=== PATIENT | male | born 1975 | race Caucasian/White ===

== ENCOUNTER 2020-04-19 06:43 | Inpatient (IN) | payer OTHER ==
[2020-04-19] MEDS ORDERED: HYDROmorphone 1 MG/ML Syringe IVPUSH ONE ×2 (07:04→09:22)
[2020-04-19] MEDS ORDERED: Metoclopramide 10 MG/2 ML SDV IVPUSH ONE (07:04)
--- NOTE | 2020-04-19 07:09 | EDM.PDOC ---
ED HPI GENERAL MEDICAL PROBLEM - General Chief Complaint: Abdominal Pain Stated Complaint: [facility] Time Seen by Provider: 04/19/20 06:56 Source of Information: Reports: Patient History Limitations: Reports: No Limitations - History of Present Illness INITIAL COMMENTS - FREE TEXT/NARRATIVE: 44-year-old male presents the ED due to sudden onset of diffuse epigastric left upper quadrant left lower quadrant abdominal pain early about 0400 hrs. this morning. He states he was finally went to bed last night. He ate and drank normally yesterday. He denies any alcohol intake over the weekend. Denies any vomiting but he is mildly nauseated. Believes his bowel function has been normal. No diarrhea. No previous abdominal surgery. He is an insulin- dependent diabetic for about 15 years. Blood sugar currently is 323 at the bedside. Take some Lantus last night before bed as per his usual. Pain radiates slightly up and towards his left lateral abdomen and flank. No history of renal colic. Has noted no change in the color of his urine. No fever or chills. Pain is described as constant but seems to be moving around a little bit. He denies any colicky component to the pain Onset: Today, Sudden Onset Date: 04/19/20 Onset Time: 04:00 Duration: Hour(s):, Constant, Getting Worse Location: Reports: Abdomen, Radiates to (Epigastrium and left upper quadrant left lower quadrant of the abdomen. Slightly towards the) Quality: Reports: Ache ( left flank.) Severity: Moderate Improves with: Reports: None (810) Worsens with: Reports: Movement Context: Reports: Other (Sudden onset). Denies: Activity, Exercise, Lifting, Sick Contact, Trauma Associated Symptoms: Reports: Loss of Appetite, Malaise, Nausea/Vomiting ( Nausea without vomiting). 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 Has been diabetic for about 15 years) Social & Family History - Living Situation & Occupation Living situation: Reports: Single Occupation: Employed ED ROS GENERAL - Review of Systems Review Of Systems: See Below Constitutional: Reports: Decreased Appetite. Denies: Fever, Chills, Malaise, Weakness, Fatigue, Weight Loss HEENT: Reports: No Symptoms Respiratory: Reports: No Symptoms Cardiovascular: Reports: No Symptoms Endocrine: Reports: No Symptoms GI/Abdominal: Reports: Abdominal Pain (Epigastrium left upper quadrant left lower quadrant abdominal pain.), Decreased Appetite, Nausea. Denies: Vomiting : Reports: No Symptoms Musculoskeletal: Reports: No Symptoms Skin: Reports: No Symptoms Neurological: Reports: No Symptoms Psychiatric: Reports: No Symptoms Hematologic/Lymphatic: Reports: No Symptoms Immunologic: Reports: No Symptoms ED EXAM, GI/ABD - Physical Exam Exam: See Below Exam Limited By: No Limitations General Appearance: Alert, WD/WN, Moderate Distress, Other (Used to be in a good deal of discomfort. Temperature is 35.8 with a heart rate of 66 and sinus. Respiratory is 22 with O2 sats of 97% on room air BP 11/30/1977.) Eyes: Bilateral: Normal Appearance (No scleral icterus or blepharal pallor.) Throat/Mouth: Normal Oropharynx (Is minimally dry.), Other Head: Atraumatic, Other Neck: Normal Inspection, Supple, Non-Tender, Full Range of Motion. No: Carotid Bruit, Lymphadenopathy (L), Lymphadenopathy (R) Respiratory/Chest: No Respiratory Distress, Lungs Clear, Normal Breath Sounds, No Accessory Muscle Use Cardiovascular: Normal Peripheral Pulses, Regular Rate, Rhythm, No Edema, No Gallop, No Murmur, No Rub GI/Abdominal Exam: Soft, No Organomegaly, Guarding, Rebound, Tender (Tender to touch along the entire left hemiabdomen and epigastrium.), Abnormal Bowel Sounds (Bowel sounds are diminished substantially.). No: Rigid (Male) Exam: No Hernia Back Exam: CVA Tenderness (L). No: CVA Tenderness (R) (Mild) Extremities: Normal Inspection, Normal Range of Motion, Non-Tender, No Pedal Edema Neurological: Alert, Oriented, CN II-XII Intact, Normal Cognition Psychiatric: Other Skin Exam: Warm, Dry (Good deal of discomfort.), Intact, Normal Color, No Rash, Other (Mild ecchymoses abdominal wall in several sites at insulin injection sites.) EKG INTERPRETATION EKG Date: 04/19/20 Time: 07:20 Rhythm: NSR Rate (Beats/Min): 74 [place]: Normal P-Wave: Enlarged (Consider mild left atrial hypertrophy.) QRS: Normal ST-T: Normal QT: Normal EKG Interpretation Comments: Essentially normal ECG Course - Vital Signs Last Recorded V/S: Last Vital Signs Temp 35.8 C L 04/19/20 06:48 Pulse 66 04/19/20 06:48 Resp 22 H 04/19/20 06:48 BP 119/78 04/19/20 06:48 Pulse Ox 97 04/19/20 06:48 - Orders/Labs/Meds Orders: Active Orders 24 hr Category Date Time Status Admission Status [Patient Status] [ADT] Routine ADT 04/19/20 10:43 Ordered EKG Documentation Completion [RC] STAT Care 04/19/20 07:05 Active CHOLESTEROL HDL [CHEM] Stat Lab 04/19/20 08:21 Received CHOLESTEROL LDL DIRECT [CHEM] Stat Lab 04/19/20 08:21 Received CHOLESTEROL TOTAL [CHEM] Stat Lab 04/19/20 08:21 Received DRUG SCREEN, URINE [URCHEM] Stat Lab 04/19/20 07:35 Received ETHANOL BLOOD MEDICAL [CHEM] Stat Lab 04/19/20 08:21 Received TRIGLYCERIDES [CHEM] Stat Lab 04/19/20 08:21 Received Sodium Chloride 0.9% [Normal Saline] 1,000 ml Med 04/19/20 07:15 Active IV ASDIRECTED Sodium Chloride 0.9% [Saline Flush] Med 04/19/20 08:53 Active 10 ml FLUSH ONETIME PRN Medication Orders Sodium Chloride (Normal Saline) 1,000 mls @ 999 mls/hr IV ASDIRECTED VERONIQUE Last Admin: 04/19/20 07:35 Dose: 999 mls/hr Sodium Chloride (Saline Flush) 10 ml FLUSH ONETIME PRN PRN Reason: IV FLUSH Last Admin: 04/19/20 09:43 Dose: 10 ml Labs: Laboratory Tests 04/19/20 04/19/20 04/19/20 Range/Units 07:00 07:35 08:21 WBC 17.78 H (4.23-9.07) K/mm3 RBC 5.53 (4.63-6.08) M/mm3 Hgb 16.7 (13.7-17.5) gm/dl Hct 48.7 (40.1-51.0) % MCV 88.1 (79.0-92.2) fl MCH 30.2 (25.7-32.2) pg MCHC 34.3 (32.2-35.5) g/dl RDW Std Deviation 41.7 (35.1-43.9) fL Plt Count 277 (163-337) K/mm3 MPV 11.4 (9.4-12.3) fl Neut % (Auto) 82.5 H (34.0-67.9) % Lymph % (Auto) 10.2 L (21.8-53.1) % [place] % (Auto) 6.2 (5.3-12.2) % Eos % (Auto) 0.4 L (0.8-7.0) Baso % (Auto) 0.2 (0.1-1.2) % Neut # (Auto) 14.66 H (1.78-5.38) K/mm3 Lymph # (Auto) 1.81 (1.32-3.57) K/mm3 [place] # (Auto) 1.11 H (0.30-0.82) K/mm3 Eos # (Auto) 0.07 (0.04-0.54) K/mm3 Baso # (Auto) 0.04 (0.01-0.08) K/mm3 Manual Slide Review Normal smear PT (9.7-12.0) SECONDS INR APTT (22-31) SECONDS Sodium (136-145) mEq/L Potassium (3.5-5.1) mEq/L Chloride (98-107) mEq/L Carbon Dioxide (21-32) mEq/L Anion Gap (5-15) BUN (7-18) mg/dL Creatinine (0.7-1.3) mg/dL Est Cr Clr Drug Dosing mL/min Estimated GFR (MDRD) (>60) mL/min BUN/Creatinine Ratio (14-18) Glucose (74-106) mg/dL POC Glucose 323 H (70-105) mg/dL Hemoglobin A1c (4.50-6.20) % Lactic Acid (0.4-2.0) mmol/L Calcium (8.5-10.1) mg/dL Magnesium (1.8-2.4) mg/dl Total Bilirubin (0.2-1.0) mg/dL AST (15-37) U/L ALT (16-63) U/L Alkaline Phosphatase (46-116) U/L Troponin I (0.00-0.056) ng/mL C-Reactive Protein (<1.0) mg/dL Total Protein (6.4-8.2) g/dl Albumin (3.4-5.0) g/dl Globulin gm/dL Albumin/Globulin Ratio (1-2) Lipase (73-393) U/L Urine Color Yellow (Yellow) Urine Appearance Clear (Clear) Urine pH 5.5 (5.0-8.0) Ur Specific [place] 1.025 (1.005-1.030) Urine Protein 2+ H (Negative) Urine Glucose (UA) 2+ H (Negative) Urine Ketones Negative (Negative) Urine Occult Blood Negative (Negative) Urine Nitrite Negative (Negative) Urine Bilirubin Negative (Negative) Urine Urobilinogen 0.2 (0.2-1.0) Ur Leukocyte Esterase Negative (Negative) Urine RBC Not seen (0-5) /hpf Urine WBC Not seen (0-5) /hpf Ur Squamous Epith Cells 0-5 (0-5) /hpf Urine Bacteria Not seen (FEW) /hpf Urine Mucus Not seen (FEW) /hpf 04/19/20 04/19/20 04/19/20 Range/Units 08:21 08:21 08:21 WBC (4.23-9.07) K/mm3 RBC (4.63-6.08) M/mm3 Hgb (13.7-17.5) gm/dl Hct (40.1-51.0) % MCV (79.0-92.2) fl MCH (25.7-32.2) pg MCHC (32.2-35.5) g/dl RDW Std Deviation (35.1-43.9) fL Plt Count (163-337) K/mm3 MPV (9.4-12.3) fl Neut % (Auto) (34.0-67.9) % Lymph % (Auto) (21.8-53.1) % [place] % (Auto) (5.3-12.2) % Eos % (Auto) (0.8-7.0) Baso % (Auto) (0.1-1.2) % Neut # (Auto) (1.78-5.38) K/mm3 Lymph # (Auto) (1.32-3.57) K/mm3 [place] # (Auto) (0.30-0.82) K/mm3 Eos # (Auto) (0.04-0.54) K/mm3 Baso # (Auto) (0.01-0.08) K/mm3 Manual Slide Review PT 10.1 (9.7-12.0) SECONDS INR 0.93 APTT 21 L (22-31) SECONDS Sodium 136 (136-145) mEq/L Potassium 4.4 (3.5-5.1) mEq/L Chloride 102 (98-107) mEq/L Carbon Dioxide 24 (21-32) mEq/L Anion Gap 14.4 (5-15) BUN 29 H (7-18) mg/dL Creatinine 1.3 (0.7-1.3) mg/dL Est Cr Clr Drug Dosing 85.19 mL/min Estimated GFR (MDRD) > 60 (>60) mL/min BUN/Creatinine Ratio 22.3 H (14-18) Glucose 315 H (74-106) mg/dL POC Glucose (70-105) mg/dL Hemoglobin A1c 8.30 H (4.50-6.20) % Lactic Acid (0.4-2.0) mmol/L Calcium 8.9 (8.5-10.1) mg/dL Magnesium 1.9 (1.8-2.4) mg/dl Total Bilirubin 0.2 (0.2-1.0) mg/dL AST 25 (15-37) U/L ALT 42 (16-63) U/L Alkaline Phosphatase 101 (46-116) U/L Troponin I < 0.017 (0.00-0.056) ng/mL C-Reactive Protein <0.2 (<1.0) mg/dL Total Protein 7.1 (6.4-8.2) g/dl Albumin 3.1 L (3.4-5.0) g/dl Globulin 4.0 gm/dL Albumin/Globulin Ratio 0.8 L (1-2) Lipase (73-393) U/L Urine Color (Yellow) Urine Appearance (Clear) Urine pH (5.0-8.0) Ur Specific [place] (1.005-1.030) Urine Protein (Negative) Urine Glucose (UA) (Negative) Urine Ketones (Negative) Urine Occult Blood (Negative) Urine Nitrite (Negative) Urine Bilirubin (Negative) Urine Urobilinogen (0.2-1.0) Ur Leukocyte Esterase (Negative) Urine RBC (0-5) /hpf Urine WBC (0-5) /hpf Ur Squamous Epith Cells (0-5) /hpf Urine Bacteria (FEW) /hpf Urine Mucus (FEW) /hpf 04/19/20 04/19/20 Range/Units 08:21 08:21 WBC (4.23-9.07) K/mm3 RBC (4.63-6.08) M/mm3 Hgb (13.7-17.5) gm/dl Hct (40.1-51.0) % MCV (79.0-92.2) fl MCH (25.7-32.2) pg MCHC (32.2-35.5) g/dl RDW Std Deviation (35.1-43.9) fL Plt Count (163-337) K/mm3 MPV (9.4-12.3) fl Neut % (Auto) (34.0-67.9) % Lymph % (Auto) (21.8-53.1) % [place] % (Auto) (5.3-12.2) % Eos % (Auto) (0.8-7.0) Baso % (Auto) (0.1-1.2) % Neut # (Auto) (1.78-5.38) K/mm3 Lymph # (Auto) (1.32-3.57) K/mm3 [place] # (Auto) (0.30-0.82) K/mm3 Eos # (Auto) (0.04-0.54) K/mm3 Baso # (Auto) (0.01-0.08) K/mm3 Manual Slide Review PT (9.7-12.0) SECONDS INR APTT (22-31) SECONDS Sodium (136-145) mEq/L Potassium (3.5-5.1) mEq/L Chloride (98-107) mEq/L Carbon Dioxide (21-32) mEq/L Anion Gap (5-15) BUN (7-18) mg/dL Creatinine (0.7-1.3) mg/dL Est Cr Clr Drug Dosing mL/min Estimated GFR (MDRD) (>60) mL/min BUN/Creatinine Ratio (14-18) Glucose (74-106) mg/dL POC Glucose (70-105) mg/dL Hemoglobin A1c (4.50-6.20) % Lactic Acid 1.9 (0.4-2.0) mmol/L Calcium (8.5-10.1) mg/dL Magnesium (1.8-2.4) mg/dl Total Bilirubin (0.2-1.0) mg/dL AST (15-37) U/L ALT (16-63) U/L Alkaline Phosphatase (46-116) U/L Troponin I (0.00-0.056) ng/mL C-Reactive Protein (<1.0) mg/dL Total Protein (6.4-8.2) g/dl Albumin (3.4-5.0) g/dl Globulin gm/dL Albumin/Globulin Ratio (1-2) Lipase 1873 H (73-393) U/L Urine Color (Yellow) Urine Appearance (Clear) Urine pH (5.0-8.0) Ur Specific [place] (1.005-1.030) Urine Protein (Negative) Urine Glucose (UA) (Negative) Urine Ketones (Negative) Urine Occult Blood (Negative) Urine Nitrite (Negative) Urine Bilirubin (Negative) Urine Urobilinogen (0.2-1.0) Ur Leukocyte Esterase (Negative) Urine RBC (0-5) /hpf Urine WBC (0-5) /hpf Ur Squamous Epith Cells (0-5) /hpf Urine Bacteria (FEW) /hpf Urine Mucus (FEW) /hpf Meds: Medications Generic Name Dose Route Start Last Admin Trade Name Freq PRN Reason Stop Dose Admin Sodium Chloride 1,000 mls @ 999 mls/hr 04/19/20 07:15 04/19/20 07:35 Normal Saline IV 999 mls/hr ASDIRECTED VERONIQUE Administration Sodium Chloride 10 ml 04/19/20 08:53 04/19/20 09:43 Saline Flush FLUSH 10 ml ONETIME PRN Administration IV FLUSH Discontinued Medications Generic Name Dose Route Start Last Admin Trade Name Freq PRN Reason Stop Dose Admin Diatrizoate Meglum/Diatrizoate Sod 120 ml 04/19/20 08:53 04/19/20 09:43 Gastrografin 37% PO 04/19/20 08:54 90 ml ONETIME ONE Administration Fentanyl 100 mcg 04/19/20 10:26 04/19/20 10:35 Sublimaze IVPUSH 04/19/20 10:27 100 mcg ONETIME ONE Administration Hydromorphone HCl 1 mg 04/19/20 07:04 04/19/20 07:36 Dilaudid IVPUSH 04/19/20 07:05 1 mg ONETIME ONE Administration Hydromorphone HCl 0.5 mg 04/19/20 08:08 04/19/20 08:20 Dilaudid IVPUSH 04/19/20 08:09 0.5 mg ONETIME ONE Administration Hydromorphone HCl 1 mg 04/19/20 09:22 04/19/20 09:34 Dilaudid IVPUSH 04/19/20 09:23 1 mg ONETIME ONE Administration Iopamidol 50 ml 04/19/20 08:53 04/19/20 09:43 Isovue-300 (61%) IVPUSH 04/19/20 08:54 50 ml ONETIME ONE Administration Iopamidol 100 ml 04/19/20 08:53 04/19/20 09:43 Isovue-300 (61%) IVPUSH 04/19/20 08:54 100 ml ONETIME ONE Administration Metoclopramide HCl 10 mg 04/19/20 07:04 04/19/20 07:35 Reglan IVPUSH 04/19/20 07:05 10 mg ONETIME ONE Administration - Radiology Interpretation Free Text/Narrative:: 44-year-old male presents to the ED with sudden onset of diffuse left laurie- abdominal pain left epigastric left upper quadrant abdominal pain rating slightly into the left flank since about 0400 hrs. this morning. Associated nausea without vomiting. No associated fever or chills. No diarrhea recently. Ate and drank normally yesterday. He takes insulin for his diabetes control. Blood sugar was 323 at the bedside. He is extremely tender to touch throughout the left hemiabdomen. He has absence of bowel sounds and guarding and rebound in the left lower quadrant. Plan IV normal saline at open. Dilaudid 1 mg IV with Reglan 10 mg IV. Routine labs including a lipase and lactic acid. KUB to be done as well as ECG. - Re-Assessments/Exams Free Text/Narrative Re-Assessment/Exam: 04/19/20 07:54 : KUB reveals increased stool throughout most of the right hemicolon the transverse colon and the descending colon. Rectal vault is empty. There is a dilated loop of small bowel left upper quadrant and several dilated loops in the right lower quadrant that with a mild ileus pattern. There is no bowel obstruction .There are no air-fluid levels. 04/19/20 08:08 patient states the pain is down to a 4 out of 10. Will repeat Dilaudid 0.5 mg IV for pain relief. No labs yet are back on him. 04/19/20 08:[address] of the abdomen with oral and IV contrast. He will start with oral contrast and will make sure his renal function is good before pursuing IV contrast. 04/19/20 09:11 White count is markedly elevated at 17.78. The auto differential shows 82.5% neutrophils. Hemoglobin is 16.7 with hematocrit of 48.7 i.e. hemoconcentration. Platelet count is 277,000. The smear is reported as normal without any bands cells. PT is 10.1 with an INR of 0.93 PTT is 21. Hemoglobin A1c is 8.30. Lactic acid 1.9. Urinalysis shows 2+ proteinuria 2+ glucosuria but no signs of infection. Chemistry is pending 04/19/20 09:21 is got down one bottle of contrast thus far. It is made his abdomen much more comfortable however. The labs suggest that there is an underlying infective process most likely diverticulitis. He has no history of this however. Will repeat Dilaudid 1 mg IV for pain relief. 04/19/20 10:11 CT of the abdomen has been performed with IV and oral contrast. Visualized portions of the lung bases are normal. Cardiac silhouette appears to be normal as well. Liver appears homogeneous with mild fatty infiltration. No intraductal dilatation identified. Gallbladder is elongated and does not appear to contain any calcified gallstones. There are some inflammatory change seen around the pancreas compatible with pancreatitis. Stomach is normal spleen is normal. Adrenal glands are both visualized and normal. Both kidneys are normal although the left is slightly smaller than the right. No obstruction of the ureters are evident. There is scattered amount of stool throughout the colon and a few diverticuli throughout the sigmoid and descending colon. No acute diverticulitis identified. The axis felt to be visualized and normal in size. There is a fat-containing right inguinal hernia. No retroperitoneal adenopathy or mesenteric abnormalities seen. 04/19/20 10:18 Chemistry has returned. Sodium 136 with a potassium of 4.4. Chloride is 102 with a bicarb of 24. Anion gap is 14.4. BUN is 29 with a creatinine of 1.3. GFR is greater than 60. Glucose is 315 was 323 at the bedside. Hemoglobin A1c is elevated at 8.30. Lactic acid is 1.9. Calcium is 8.9. Magnesium is 1.9. Liver function is normal. Troponin I is less than 0.017 with a C-reactive protein less than 0.2. Total protein is 7.1 with an albumin fraction of 3.1. Lipase is elevated at 1873. 04/19/20 10:25 patient is still experiencing a good deal of pain. On firm investigation he states he rarely drinks alcohol. He certainly has not had any for the last week or 10 days. He requires further investigations as to the cause of his pancreatitis. There is no evidence of gallstone related illness. Calcium is within normal limits. Serum triglycerides will have to be done. 04/19/20 10:44 I have spoken with Dr. Guerrero on-call hospitalist and he will see the patient on the med surgery floor. Departure - Departure Time of Disposition: 10:44 Disposition: Admitted As Inpatient 67 Condition: Fair Clinical Impression: Controlled type 2 diabetes mellitus with insulin therapy Acute pancreatitis Qualifiers: Pancreatitis type: unspecified pancreatitis type Acute pancreatitis complication: no infection or necrosis Qualified Code(s): K85.90 - Acute pancreatitis without necrosis or infection, unspecified - Discharge Information *PRESCRIPTION DRUG MONITORING PROGRAM REVIEWED*: Not Applicable *COPY OF PRESCRIPTION DRUG MONITORING REPORT IN PATIENT [place]: Not Applicable Referrals: PCP,Not In Area [Primary Care Provider] - Forms: ED Department Discharge Sepsis Event Note - Evaluation Sepsis Screening Result: No Definite Risk - Focused Exam Vital Signs: Vital Signs Temp Pulse Resp BP Pulse Ox 04/19/20 06:48 35.8 C L 66 22 H 119/78 97 Date Exam was Performed: 04/19/20 Time Exam was Performed: 10:44 - My Orders Last 24 Hours: My Active Orders 04/19/20 07:05 EKG Documentation Completion [RC] STAT 04/19/20 07:15 Sodium Chloride 0.9% [Normal Saline] 1,000 ml IV ASDIRECTED 04/19/20 07:35 DRUG SCREEN, URINE [URCHEM] Stat 04/19/20 08:21 CHOLESTEROL HDL [CHEM] Stat CHOLESTEROL LDL DIRECT [CHEM] Stat CHOLESTEROL TOTAL [CHEM] Stat ETHANOL BLOOD MEDICAL [CHEM] Stat TRIGLYCERIDES [CHEM] Stat 04/19/20 08:53 Sodium Chloride 0.9% [Saline Flush] 10 ml FLUSH ONETIME PRN 04/19/20 10:43 Admission Status [Patient Status] [ADT] Routine - Assessment/Plan Last 24 Hours: My Active Orders 04/19/20 07:05 EKG Documentation Completion [RC] STAT 04/19/20 07:15 Sodium Chloride 0.9% [Normal Saline] 1,000 ml IV ASDIRECTED 04/19/20 07:35 DRUG SCREEN, URINE [URCHEM] Stat 04/19/20 08:21 CHOLESTEROL HDL [CHEM] Stat CHOLESTEROL LDL DIRECT [CHEM] Stat CHOLESTEROL TOTAL [CHEM] Stat ETHANOL BLOOD MEDICAL [CHEM] Stat TRIGLYCERIDES [CHEM] Stat 04/19/20 08:53 Sodium Chloride 0.9% [Saline Flush] 10 ml FLUSH ONETIME PRN 04/19/20 10:43 Admission Status [Patient Status] [ADT] Routine
[2020-04-19] MEDS ORDERED: Sodium Chloride 0.9% 1,000 ML IV SCH (07:15)
[2020-04-19] MEDS ORDERED: HYDROmorphone 0.5 MG/0.5 ML Syringe IVPUSH ONE ×2 (08:08→12:10)
[2020-04-19] MEDS ORDERED: Iopamidol 612 MG/ML 100 ML Bottle IVPUSH ONE (08:53)
[2020-04-19] MEDS ORDERED: Sodium Chloride 0.9% 10 ML Syringe FLUSH PRN (08:53)
[2020-04-19] MEDS ORDERED: Diatrizoate Meglumine/Diatrizoate Sodium 37% 120 ML Bottle PO ONE (08:53)
[2020-04-19] MEDS ORDERED: Iopamidol 612 MG/ML 50 ML SDV IVPUSH ONE (08:53)
[2020-04-19 08:55] LABS: HEMOGLOBIN A1C 8.3 % (4.50-6.20)
--- NOTE | 2020-04-19 09:05 | CR ---
Abdomen: Supine view of the abdomen was obtained. Comparison: No prior abdominal x-ray. Bowel gas pattern is normal. No abnormal calcifications or soft tissue abnormality is seen. Bony structures are unremarkable. Impression: 1. Nothing acute is seen on supine abdominal x-ray.. Diagnostic code #1 This report was dictated in MDT
--- NOTE | 2020-04-19 10:09 | CT ---
CT abdomen and pelvis Technique: Multiple axial sections were obtained from above the dome of the diaphragm inferiorly through the pubic symphysis. Intravenous contrast was utilized. Small amount of oral contrast is noted. Findings: Visualized lung bases shows mild fibrosis. Liver shows fatty infiltration. No focal abnormality is seen within the liver. Spleen appears normal. Small soft tissue nodules are seen posterior to the spleen compatible with accessory splenic tissue. Inflammatory change is seen around the pancreas compatible with pancreatitis. Gallbladder contains no calcified gallstones. Adrenal glands show no nodule. Kidneys show symmetric contrast enhancement without hydronephrosis or mass. Aorta shows no aneurysm. No retroperitoneal adenopathy or mesenteric abnormalities are seen. No pelvic mass or adenopathy is seen. Fat-containing right inguinal hernia is noted. No free fluid is seen. Appendix is felt to be visualized and is normal in size. Delayed images were obtained which shows contrast within the distal ureters and bladder. Bone window settings were reviewed. No acute osseous finding is appreciated. Impression: 1. Inflammatory change around the pancreas which is felt compatible with pancreatitis. 2. Fatty infiltration within the liver. 3. Other findings believed to be nonacute as noted above. Diagnostic code #3 This report was dictated in MDT
[2020-04-19] MEDS ORDERED: fentaNYL 100 MCG/2 ML SDV IVPUSH ONE (10:26)
[2020-04-19] MEDS: Lactated Ringers 1,000 ML IV SCH ×3 (10:54→20:16)
[2020-04-19] MEDS ORDERED: Morphine 4 MG/ML Syringe IVPUSH ONE (11:36)
[2020-04-19] MEDS ORDERED: HYDROmorphone 0.5 MG/0.5 ML Syringe IVPUSH STA (12:37)
[2020-04-19] MEDS ORDERED: Ondansetron 4 MG/2 ML SDV IV PRN (12:49)
--- NOTE | 2020-04-19 13:07 | PCM.HP.2 ---
H&P History of Present Illness - General Date of Service: 04/19/20 Admit Problem/Dx: Admission Diagnosis/Problem Admission Diagnosis/Problem Acute pancreatitis - History of Present Illness Initial Comments - Free Text/Narative: 44-year-old male with history of type 2 diabetes diagnosed in 2014 presents to the emergency department with severe abdominal pain that started this morning. Patient complains of nausea but no vomiting. Blood sugars this morning were 270 and they are normally 150-200. He did not have any alcohol intake over the weekend. The pain is constant and mostly in the epigastrium. He denies any change in bowel habits. Denies any diarrhea, constipation. He is on insulin for his diabetes. In the emergency department his blood sugar was 323 at bedside. With stable vital signs except a slightly elevated respiratory rate of 22. White count 17.78, hemoglobin 16.7, platelets 277. INR 0.93, sodium 136 , potassium 4.4, chloride 102, bicarb 24, BUN 29, creatinine 1.3. Hemoglobin A1c is 8.3. Troponin was less than 0.017. Normal liver enzymes. Albumin 3.1. Lactic acid 1.9. Lipase 1873. CT of the abdomen showed inflammatory change around the pancreas which is felt compatible with pancreatitis. Fatty infiltration within the liver. Patient was started on fluid bolus and given Dilaudid, fentanyl, and morphine for pain management. He was then transferred to the floor with diagnosis of acute pancreatitis with unknown cause. Abdominal Pain Score (Numeric/FACES): 10 - Related Data Allergies/Adverse Reactions: Allergies Allergy/AdvReac Type Severity Reaction Status Date / Time amoxicillin Allergy Mild Hives Verified 04/19/20 15:23 Home Medications: Home Meds Insulin Aspart [NovoLOG] 12 units SUBCUT TIDMEALS 04/19/20 [History] Insulin Degludec [Tresiba] 20 units SUBCUT QPM 04/19/20 [History] Sildenafil Citrate 25 - 50 mg PO DAILY PRN 04/19/20 [History] Past Medical History Endocrine/Metabolic History: Reports: Diabetes, Type II Other Dermatologic History: "blister with MRSA in groin" - Infectious Disease History Infectious Disease History: Reports: MRSA Social & Family History - Family History Family Medical History: Noncontributory - Tobacco Use Smoking Status *Q: Light Tobacco Smoker Years of Tobacco use: 20 Packs/Tins Daily: 0.5 Used Tobacco, but Quit: No Tobacco Use Comment: vapes occasionally Second Hand Smoke Exposure: No - Caffeine Use Caffeine Use: Reports: Coffee Other Caffeine Use: 3 cups/day - Recreational Drug Use Recreational Drug Use: No - Living Situation & Occupation Living situation: Reports: Single Occupation: Employed H&P Review of Systems - Review of Systems: Review Of Systems: Comprehensive ROS is negative, except as noted in HPI. Exam - Exam Exam: See Below - Vital Signs Vital Signs: Last Vital Signs Temp 97.5 F 04/19/20 12:05 Pulse 91 04/19/20 12:05 Resp 22 H 04/19/20 12:05 BP 149/97 H 04/19/20 12:05 Pulse Ox 94 L 04/19/20 12:05 Weight: 291 lb 14.4 oz - Exam General: Alert, Oriented, Moderate Distress HEENT: Conjunctiva Clear, Hearing Intact, Mucosa Moist & [place] Neck: Supple, Trachea Midline, 2 Lungs: Clear to Auscultation, Normal Respiratory Effort Cardiovascular: Regular Rate, Regular Rhythm GI/Abdominal Exam: Soft, No Organomegaly, No Distention, No Abnormal Bruit, No Mass, Tender (Epigastric tenderness). No: Abnormal Bowel Sounds (Decreased) Back Exam: Normal Inspection Extremities: Normal Inspection, Normal Range of Motion, Non-Tender, No Pedal Edema, Normal Capillary Refill Skin: Warm, Dry, Intact Neuro Extensive - Motor, Sensory, Reflexes: CN II-XII Intact Psychiatric: Alert, Normal Affect, Normal Mood - Patient Data Lab Results Last 24 hrs: Laboratory Results - last 24 hr 04/19/20 04/19/20 04/19/20 Range/Units 07:00 07:35 07:35 WBC (4.23-9.07) K/mm3 RBC (4.63-6.08) M/mm3 Hgb (13.7-17.5) gm/dl Hct (40.1-51.0) % MCV (79.0-92.2) fl MCH (25.7-32.2) pg MCHC (32.2-35.5) g/dl RDW Std Deviation (35.1-43.9) fL Plt Count (163-337) K/mm3 MPV (9.4-12.3) fl Neut % (Auto) (34.0-67.9) % Lymph % (Auto) (21.8-53.1) % [place] % (Auto) (5.3-12.2) % Eos % (Auto) (0.8-7.0) Baso % (Auto) (0.1-1.2) % Neut # (Auto) (1.78-5.38) K/mm3 Lymph # (Auto) (1.32-3.57) K/mm3 [place] # (Auto) (0.30-0.82) K/mm3 Eos # (Auto) (0.04-0.54) K/mm3 Baso # (Auto) (0.01-0.08) K/mm3 Manual Slide Review PT (9.7-12.0) SECONDS INR APTT (22-31) SECONDS Sodium (136-145) mEq/L Potassium (3.5-5.1) mEq/L Chloride (98-107) mEq/L Carbon Dioxide (21-32) mEq/L Anion Gap (5-15) BUN (7-18) mg/dL Creatinine (0.7-1.3) mg/dL Est Cr Clr Drug Dosing mL/min Estimated GFR (MDRD) (>60) mL/min BUN/Creatinine Ratio (14-18) Glucose (74-106) mg/dL POC Glucose 323 H (70-105) mg/dL Hemoglobin A1c (4.50-6.20) % Lactic Acid (0.4-2.0) mmol/L Calcium (8.5-10.1) mg/dL Magnesium (1.8-2.4) mg/dl Total Bilirubin (0.2-1.0) mg/dL AST (15-37) U/L ALT (16-63) U/L Alkaline Phosphatase (46-116) U/L Troponin I (0.00-0.056) ng/mL C-Reactive Protein (<1.0) mg/dL Total Protein (6.4-8.2) g/dl Albumin (3.4-5.0) g/dl Globulin gm/dL Albumin/Globulin Ratio (1-2) Triglycerides (<150) mg/dL Cholesterol (<200) mg/dL LDL Cholesterol Direct (<100) mg/dL HDL Cholesterol (40-59) mg/dL Lipase (73-393) U/L Urine Color Yellow (Yellow) Urine Appearance Clear (Clear) Urine pH 5.5 (5.0-8.0) Ur Specific [place] 1.025 (1.005-1.030) Urine Protein 2+ H (Negative) Urine Glucose (UA) 2+ H (Negative) Urine Ketones Negative (Negative) Urine Occult Blood Negative (Negative) Urine Nitrite Negative (Negative) Urine Bilirubin Negative (Negative) Urine Urobilinogen 0.2 (0.2-1.0) Ur Leukocyte Esterase Negative (Negative) Urine RBC Not seen (0-5) /hpf Urine WBC Not seen (0-5) /hpf Ur Squamous Epith Cells 0-5 (0-5) /hpf Urine Bacteria Not seen (FEW) /hpf Urine Mucus Not seen (FEW) /hpf Urine Opiates Screen Negative (ULDOPM=818) Ur Buprenorphine Scrn Negative (CUTOFF=10) Ur Oxycodone Screen Negative (OYX8FE=228) Urine Methadone Screen Negative (CKC8FM=673) Ur Propoxyphene Screen Negative (GCZAWV=329) Ur Barbiturates Screen Negative (IWITKC=397) Ur Tricyclics Screen Negative (OKADOT=379) Ur Phencyclidine Scrn Negative (CUTOFF=25) Ur Amphetamine Screen Negative (ZJCPLC=271) U Methamphetamines Scrn Negative (VJJNGS=718) U Benzodiazepines Scrn Negative (TSPCDD=336) U Cocaine Metab Screen Negative (QDWBAO=812) U Marijuana (THC) Screen Negative (CUTOFF=50) Ethyl Alcohol (0.00) gm% 04/19/20 04/19/20 04/19/20 Range/Units 08:21 08:21 08:21 WBC 17.78 H (4.23-9.07) K/mm3 RBC 5.53 (4.63-6.08) M/mm3 Hgb 16.7 (13.7-17.5) gm/dl Hct 48.7 (40.1-51.0) % MCV 88.1 (79.0-92.2) fl MCH 30.2 (25.7-32.2) pg MCHC 34.3 (32.2-35.5) g/dl RDW Std Deviation 41.7 (35.1-43.9) fL Plt Count 277 (163-337) K/mm3 MPV 11.4 (9.4-12.3) fl Neut % (Auto) 82.5 H (34.0-67.9) % Lymph % (Auto) 10.2 L (21.8-53.1) % [place] % (Auto) 6.2 (5.3-12.2) % Eos % (Auto) 0.4 L (0.8-7.0) Baso % (Auto) 0.2 (0.1-1.2) % Neut # (Auto) 14.66 H (1.78-5.38) K/mm3 Lymph # (Auto) 1.81 (1.32-3.57) K/mm3 [place] # (Auto) 1.11 H (0.30-0.82) K/mm3 Eos # (Auto) 0.07 (0.04-0.54) K/mm3 Baso # (Auto) 0.04 (0.01-0.08) K/mm3 Manual Slide Review Normal smear PT 10.1 (9.7-12.0) SECONDS INR 0.93 APTT 21 L (22-31) SECONDS Sodium 136 (136-145) mEq/L Potassium 4.4 (3.5-5.1) mEq/L Chloride 102 (98-107) mEq/L Carbon Dioxide 24 (21-32) mEq/L Anion Gap 14.4 (5-15) BUN 29 H (7-18) mg/dL Creatinine 1.3 (0.7-1.3) mg/dL Est Cr Clr Drug Dosing 85.19 mL/min Estimated GFR (MDRD) > 60 (>60) mL/min BUN/Creatinine Ratio 22.3 H (14-18) Glucose 315 H (74-106) mg/dL POC Glucose (70-105) mg/dL Hemoglobin A1c (4.50-6.20) % Lactic Acid (0.4-2.0) mmol/L Calcium 8.9 (8.5-10.1) mg/dL Magnesium 1.9 (1.8-2.4) mg/dl Total Bilirubin 0.2 (0.2-1.0) mg/dL AST 25 (15-37) U/L ALT 42 (16-63) U/L Alkaline Phosphatase 101 (46-116) U/L Troponin I < 0.017 (0.00-0.056) ng/mL C-Reactive Protein <0.2 (<1.0) mg/dL Total Protein 7.1 (6.4-8.2) g/dl Albumin 3.1 L (3.4-5.0) g/dl Globulin 4.0 gm/dL Albumin/Globulin Ratio 0.8 L (1-2) Triglycerides (<150) mg/dL Cholesterol (<200) mg/dL LDL Cholesterol Direct (<100) mg/dL HDL Cholesterol (40-59) mg/dL Lipase (73-393) U/L Urine Color (Yellow) Urine Appearance (Clear) Urine pH (5.0-8.0) Ur Specific [place] (1.005-1.030) Urine Protein (Negative) Urine Glucose (UA) (Negative) Urine Ketones (Negative) Urine Occult Blood (Negative) Urine Nitrite (Negative) Urine Bilirubin (Negative) Urine Urobilinogen (0.2-1.0) Ur Leukocyte Esterase (Negative) Urine RBC (0-5) /hpf Urine WBC (0-5) /hpf Ur Squamous Epith Cells (0-5) /hpf Urine Bacteria (FEW) /hpf Urine Mucus (FEW) /hpf Urine Opiates Screen (APQFNX=610) Ur Buprenorphine Scrn (CUTOFF=10) Ur Oxycodone Screen (GHY7QV=828) Urine Methadone Screen (IUP9RD=749) Ur Propoxyphene Screen (RYANNI=842) Ur Barbiturates Screen (XZGGWT=298) Ur Tricyclics Screen (JHEKZV=221) Ur Phencyclidine Scrn (CUTOFF=25) Ur Amphetamine Screen (TMRGJD=488) U Methamphetamines Scrn (IDCFYV=059) U Benzodiazepines Scrn (XAMSPF=037) U Cocaine Metab Screen (SHNOZQ=894) U Marijuana (THC) Screen (CUTOFF=50) Ethyl Alcohol (0.00) gm% 04/19/20 04/19/20 04/19/20 Range/Units 08:21 08:21 08:21 WBC (4.23-9.07) K/mm3 RBC (4.63-6.08) M/mm3 Hgb (13.7-17.5) gm/dl Hct (40.1-51.0) % MCV (79.0-92.2) fl MCH (25.7-32.2) pg MCHC (32.2-35.5) g/dl RDW Std Deviation (35.1-43.9) fL Plt Count (163-337) K/mm3 MPV (9.4-12.3) fl Neut % (Auto) (34.0-67.9) % Lymph % (Auto) (21.8-53.1) % [place] % (Auto) (5.3-12.2) % Eos % (Auto) (0.8-7.0) Baso % (Auto) (0.1-1.2) % Neut # (Auto) (1.78-5.38) K/mm3 Lymph # (Auto) (1.32-3.57) K/mm3 [place] # (Auto) (0.30-0.82) K/mm3 Eos # (Auto) (0.04-0.54) K/mm3 Baso # (Auto) (0.01-0.08) K/mm3 Manual Slide Review PT (9.7-12.0) SECONDS INR APTT (22-31) SECONDS Sodium (136-145) mEq/L Potassium (3.5-5.1) mEq/L Chloride (98-107) mEq/L Carbon Dioxide (21-32) mEq/L Anion Gap (5-15) BUN (7-18) mg/dL Creatinine (0.7-1.3) mg/dL Est Cr Clr Drug Dosing mL/min Estimated GFR (MDRD) (>60) mL/min BUN/Creatinine Ratio (14-18) Glucose (74-106) mg/dL POC Glucose (70-105) mg/dL Hemoglobin A1c 8.30 H (4.50-6.20) % Lactic Acid 1.9 (0.4-2.0) mmol/L Calcium (8.5-10.1) mg/dL Magnesium (1.8-2.4) mg/dl Total Bilirubin (0.2-1.0) mg/dL AST (15-37) U/L ALT (16-63) U/L Alkaline Phosphatase (46-116) U/L Troponin I (0.00-0.056) ng/mL C-Reactive Protein (<1.0) mg/dL Total Protein (6.4-8.2) g/dl Albumin (3.4-5.0) g/dl Globulin gm/dL Albumin/Globulin Ratio (1-2) Triglycerides (<150) mg/dL Cholesterol (<200) mg/dL LDL Cholesterol Direct (<100) mg/dL HDL Cholesterol (40-59) mg/dL Lipase 1873 H (73-393) U/L Urine Color (Yellow) Urine Appearance (Clear) Urine pH (5.0-8.0) Ur Specific [place] (1.005-1.030) Urine Protein (Negative) Urine Glucose (UA) (Negative) Urine Ketones (Negative) Urine Occult Blood (Negative) Urine Nitrite (Negative) Urine Bilirubin (Negative) Urine Urobilinogen (0.2-1.0) Ur Leukocyte Esterase (Negative) Urine RBC (0-5) /hpf Urine WBC (0-5) /hpf Ur Squamous Epith Cells (0-5) /hpf Urine Bacteria (FEW) /hpf Urine Mucus (FEW) /hpf Urine Opiates Screen (MTGZKP=434) Ur Buprenorphine Scrn (CUTOFF=10) Ur Oxycodone Screen (JZS0BJ=379) Urine Methadone Screen (FGI3LE=529) Ur Propoxyphene Screen (YCPBNN=550) Ur Barbiturates Screen (JTNWIC=693) Ur Tricyclics Screen (RKJOLT=306) Ur Phencyclidine Scrn (CUTOFF=25) Ur Amphetamine Screen (GKXNEC=510) U Methamphetamines Scrn (MTETJZ=978) U Benzodiazepines Scrn (MMEWJT=134) U Cocaine Metab Screen (GXVXWY=254) U Marijuana (THC) Screen (CUTOFF=50) Ethyl Alcohol (0.00) gm% 04/19/20 Range/Units 08:21 WBC (4.23-9.07) K/mm3 RBC (4.63-6.08) M/mm3 Hgb (13.7-17.5) gm/dl Hct (40.1-51.0) % MCV (79.0-92.2) fl MCH (25.7-32.2) pg MCHC (32.2-35.5) g/dl RDW Std Deviation (35.1-43.9) fL Plt Count (163-337) K/mm3 MPV (9.4-12.3) fl Neut % (Auto) (34.0-67.9) % Lymph % (Auto) (21.8-53.1) % [place] % (Auto) (5.3-12.2) % Eos % (Auto) (0.8-7.0) Baso % (Auto) (0.1-1.2) % Neut # (Auto) (1.78-5.38) K/mm3 Lymph # (Auto) (1.32-3.57) K/mm3 [place] # (Auto) (0.30-0.82) K/mm3 Eos # (Auto) (0.04-0.54) K/mm3 Baso # (Auto) (0.01-0.08) K/mm3 Manual Slide Review PT (9.7-12.0) SECONDS INR APTT (22-31) SECONDS Sodium (136-145) mEq/L Potassium (3.5-5.1) mEq/L Chloride (98-107) mEq/L Carbon Dioxide (21-32) mEq/L Anion Gap (5-15) BUN (7-18) mg/dL Creatinine (0.7-1.3) mg/dL Est Cr Clr Drug Dosing mL/min Estimated GFR (MDRD) (>60) mL/min BUN/Creatinine Ratio (14-18) Glucose (74-106) mg/dL POC Glucose (70-105) mg/dL Hemoglobin A1c (4.50-6.20) % Lactic Acid (0.4-2.0) mmol/L Calcium (8.5-10.1) mg/dL Magnesium (1.8-2.4) mg/dl Total Bilirubin (0.2-1.0) mg/dL AST (15-37) U/L ALT (16-63) U/L Alkaline Phosphatase (46-116) U/L Troponin I (0.00-0.056) ng/mL C-Reactive Protein (<1.0) mg/dL Total Protein (6.4-8.2) g/dl Albumin (3.4-5.0) g/dl Globulin gm/dL Albumin/Globulin Ratio (1-2) Triglycerides 349 H (<150) mg/dL Cholesterol 245 H (<200) mg/dL LDL Cholesterol Direct 161 H* (<100) mg/dL HDL Cholesterol 26.0 L (40-59) mg/dL Lipase (73-393) U/L Urine Color (Yellow) Urine Appearance (Clear) Urine pH (5.0-8.0) Ur Specific [place] (1.005-1.030) Urine Protein (Negative) Urine Glucose (UA) (Negative) Urine Ketones (Negative) Urine Occult Blood (Negative) Urine Nitrite (Negative) Urine Bilirubin (Negative) Urine Urobilinogen (0.2-1.0) Ur Leukocyte Esterase (Negative) Urine RBC (0-5) /hpf Urine WBC (0-5) /hpf Ur Squamous Epith Cells (0-5) /hpf Urine Bacteria (FEW) /hpf Urine Mucus (FEW) /hpf Urine Opiates Screen (PKLGBV=254) Ur Buprenorphine Scrn (CUTOFF=10) Ur Oxycodone Screen (GDP7XA=957) Urine Methadone Screen (KUH6GR=369) Ur Propoxyphene Screen (AFNWEG=783) Ur Barbiturates Screen (OLHLFB=907) Ur Tricyclics Screen (LUUGFI=561) Ur Phencyclidine Scrn (CUTOFF=25) Ur Amphetamine Screen (UTDITM=757) U Methamphetamines Scrn (OLCNHX=089) U Benzodiazepines Scrn (JKWBBT=697) U Cocaine Metab Screen (JYYYKD=322) U Marijuana (THC) Screen (CUTOFF=50) Ethyl Alcohol 0.00 (0.00) gm% Result Diagrams: 04/19/20 08:21 04/19/20 08:21 Sepsis Event Note - Evaluation Sepsis Screening Result: No Definite Risk - Focused Exam Vital Signs: Vital Signs Temp Temp Pulse Pulse Resp BP BP 04/19/20 12:05 97.5 F 91 22 H 149/97 H 04/19/20 11:55 76 152/70 H 04/19/20 06:48 96.5 F L 66 22 H 119/78 Pulse Ox 04/19/20 12:05 94 L 04/19/20 11:55 94 L 04/19/20 06:48 97 Date Exam was Performed: 04/19/20 Time Exam was Performed: 17:19 Problem List Initiated/Reviewed/Updated: Yes Orders Last 24hrs: Active Orders 24 hr Category Date Time Status Admission Status [Patient Status] [ADT] Routine ADT 04/19/20 10:43 Active Blood Glucose Check, Bedside [RC] QIDACANDBED Care 04/19/20 13:06 Ordered Oxygen Therapy [RC] PRN Care 04/19/20 12:44 Ordered Up ad Vandana [RC] ASDIRECTED Care 04/19/20 12:49 Ordered VTE/DVT Education [RC] PER UNIT ROUTINE Care 04/19/20 12:44 Ordered Vital Signs [RC] Q4H Care 04/19/20 12:44 Ordered Consult to Diabetic Nurse Specialist [CONS] Routine Cons 04/19/20 12:49 Ordered Nothing per Oral Now Diet [DIET] Diet 04/19/20 Lunch Ordered BASIC METABOLIC PANEL,BMP [CHEM] Routine Lab 04/19/20 17:00 Ordered CBC WITH AUTO DIFF [HEME] AM Lab 04/20/20 05:11 Ordered COMPREHENSIVE METABOLIC PN,CMP [CHEM] AM Lab 04/20/20 05:11 Ordered MAGNESIUM [CHEM] AM Lab 04/20/20 05:11 Ordered MAGNESIUM [CHEM] Routine Lab 04/19/20 17:00 Ordered PHOSPHORUS [CHEM] AM Lab 04/20/20 05:11 Ordered Enoxaparin [Lovenox] Med 04/20/20 09:00 Ordered 40 mg SUBCUT DAILY HYDROmorphone [Dilaudid] Med 04/19/20 13:00 Ordered 1 mg IVPUSH Q1H PRN Insulin Lispro [HumaLOG] Med 04/19/20 17:00 Ordered See Protocol SUBCUT QIDACANDBED Lactated Ringers [Ringers, Lactated] 1,000 ml Med 04/19/20 11:00 Active IV ASDIRECTED Ondansetron [Zofran] Med 04/19/20 12:49 Ordered 4 mg IV Q4H PRN Sodium Chloride 0.9% [Saline Flush] Med 04/19/20 08:53 Active 10 ml FLUSH ONETIME PRN Resuscitation Status Routine Resus Stat 04/19/20 12:44 Ordered Medication Orders Enoxaparin Sodium (Lovenox) 40 mg SUBCUT DAILY VERONIQUE Hydromorphone HCl (Dilaudid) 1 mg IVPUSH Q1H PRN PRN Reason: Pain (severe 7-10) Lactated Ringer's (Ringers, Lactated) 1,000 mls @ 150 mls/hr IV ASDIRECTED VERONIQUE Last Infusion: 04/19/20 12:27 Dose: 999 mls/hr Admin: 04/19/20 10:54 Dose: 150 mls/hr Insulin Human Lispro (Humalog) 0 unit SUBCUT QIDACANDBED VERONIQUE; Protocol Ondansetron HCl (Zofran) 4 mg IV Q4H PRN PRN Reason: Nausea/Vomiting Sodium Chloride (Saline Flush) 10 ml FLUSH ONETIME PRN PRN Reason: IV FLUSH Last Admin: 04/19/20 09:43 Dose: 10 ml Assessment/Plan Comment:: Acute pancreatitis-unknown cause * Lipase 1872 * Poorly controlled diabetic * CT did not show any gallstones * Triglycerides less than 400 * Corrected calcium 9.6 * No signs of infection * No history of recent drinking * No high risk medications for pancreatitis * Still a possibility that biliary sludge or obstruction could be causing his pancreatitis. * [place] 2 score 2 equals 3.8% predicted rate Plan * Admit to floor for IV fluid resuscitation and pain management * Dilaudid 1 mg IV every hour as needed * Toradol 30 mg IV every 6 hours as needed * N.p.o. except ice chips until pain is improved * BMP and magnesium this evening * CMP, magnesium, CBC, phosphorus in the morning * Ultrasound of the gallbladder and liver in the morning Insulin-dependent type 2 diabetes * Blood sugars reportedly normally between 150 and 200. * Morning's blood sugars were uncharacteristically high at 270 and then just over 300 in the emergency department * On basal prandial insulin Plan * Sliding scale insulin * Fingerstick blood sugars 4 times daily * Hemoglobin A1c VTE prophylaxis with Lovenox CODE STATUS: Full code Disposition admit to medical floor for pain management and IV fluids - Mortality Measure Prognosis:: Good
[2020-04-19] MEDS: HYDROmorphone 1 MG/ML Syringe IVPUSH PRN ×5 (13:23→20:07)
[2020-04-19] MEDS ORDERED: Ketorolac 30 MG/ML SDV IVPUSH ONE (15:30)
[2020-04-19] MEDS ORDERED: Magnesium Sulfate/Water 2 GM in Premix Bag 1 BAG IV ONE (17:39)
[2020-04-19] MEDS: Insulin Lispro 100 Units/ML 3 ML Vial SUBCUT SCH ×2 (17:51→22:41)
[2020-04-19] MEDS: Ketorolac 30 MG/ML SDV IVPUSH PRN (22:25)
[2020-04-20] MEDS: HYDROmorphone 1 MG/ML Syringe IVPUSH PRN ×6 (02:09→20:44)
[2020-04-20] MEDS: Lactated Ringers 1,000 ML IV SCH ×4 (02:15→22:54)
[2020-04-20] MEDS: Ketorolac 30 MG/ML SDV IVPUSH PRN ×4 (04:33→22:51)
--- NOTE | 2020-04-20 08:27 | PCM.PN ---
- General Info Date of Service: 04/20/20 Admission Dx/Problem (Free Text): Admission Diagnosis/Problem Admission Diagnosis/Problem Acute pancreatitis Subjective Update: Patient states that his pain is improving, but it is still moderate in severity. He states the Toradol has helped his abdominal pain. Functional Status: Denies: Pain Controlled - Review of Systems General: Reports: No Symptoms HEENT: Reports: No Symptoms Pulmonary: Reports: No Symptoms Cardiovascular: Reports: No Symptoms Gastrointestinal: Reports: Abdominal Pain Musculoskeletal: Reports: No Symptoms Neurological: Reports: No Symptoms Psychiatric: Reports: No Symptoms - Patient Data Vitals - Most Recent: Last Vital Signs Temp 97.9 F 04/20/20 04:34 Pulse 89 04/20/20 04:34 Resp 19 04/20/20 04:34 BP 164/97 H 04/20/20 04:34 Pulse Ox 99 04/20/20 04:34 Weight - Most Recent: 294 lb 6.4 oz I&O - Last 24 Hours: Intake & Output 04/19/20 04/20/20 04/20/20 22:59 06:59 14:59 Intake Total 1494 1544 Output Total 600 850 Balance 894 694 Lab Results Last 24 Hours: Laboratory Results - last 24 hr 04/19/20 04/19/20 04/19/20 Range/Units 07:35 07:35 08:21 WBC 17.78 H (4.23-9.07) K/mm3 RBC 5.53 (4.63-6.08) M/mm3 Hgb 16.7 (13.7-17.5) gm/dl Hct 48.7 (40.1-51.0) % MCV 88.1 (79.0-92.2) fl MCH 30.2 (25.7-32.2) pg MCHC 34.3 (32.2-35.5) g/dl RDW Std Deviation 41.7 (35.1-43.9) fL Plt Count 277 (163-337) K/mm3 MPV 11.4 (9.4-12.3) fl Neut % (Auto) 82.5 H (34.0-67.9) % Lymph % (Auto) 10.2 L (21.8-53.1) % [place] % (Auto) 6.2 (5.3-12.2) % Eos % (Auto) 0.4 L (0.8-7.0) Baso % (Auto) 0.2 (0.1-1.2) % Neut # (Auto) 14.66 H (1.78-5.38) K/mm3 Lymph # (Auto) 1.81 (1.32-3.57) K/mm3 [place] # (Auto) 1.11 H (0.30-0.82) K/mm3 Eos # (Auto) 0.07 (0.04-0.54) K/mm3 Baso # (Auto) 0.04 (0.01-0.08) K/mm3 Manual Slide Review Normal smear PT (9.7-12.0) SECONDS INR APTT (22-31) SECONDS Sodium (136-145) mEq/L Potassium (3.5-5.1) mEq/L Chloride (98-107) mEq/L Carbon Dioxide (21-32) mEq/L Anion Gap (5-15) BUN (7-18) mg/dL Creatinine (0.7-1.3) mg/dL Est Cr Clr Drug Dosing mL/min Estimated GFR (MDRD) (>60) mL/min BUN/Creatinine Ratio (14-18) Glucose (74-106) mg/dL POC Glucose (70-105) mg/dL Hemoglobin A1c (4.50-6.20) % Lactic Acid (0.4-2.0) mmol/L Calcium (8.5-10.1) mg/dL Phosphorus (2.6-4.7) mg/dL Magnesium (1.8-2.4) mg/dl Total Bilirubin (0.2-1.0) mg/dL AST (15-37) U/L ALT (16-63) U/L Alkaline Phosphatase (46-116) U/L Troponin I (0.00-0.056) ng/mL C-Reactive Protein (<1.0) mg/dL Total Protein (6.4-8.2) g/dl Albumin (3.4-5.0) g/dl Globulin gm/dL Albumin/Globulin Ratio (1-2) Triglycerides (<150) mg/dL Cholesterol (<200) mg/dL LDL Cholesterol Direct (<100) mg/dL HDL Cholesterol (40-59) mg/dL Lipase (73-393) U/L Urine Color Yellow (Yellow) Urine Appearance Clear (Clear) Urine pH 5.5 (5.0-8.0) Ur Specific [place] 1.025 (1.005-1.030) Urine Protein 2+ H (Negative) Urine Glucose (UA) 2+ H (Negative) Urine Ketones Negative (Negative) Urine Occult Blood Negative (Negative) Urine Nitrite Negative (Negative) Urine Bilirubin Negative (Negative) Urine Urobilinogen 0.2 (0.2-1.0) Ur Leukocyte Esterase Negative (Negative) Urine RBC Not seen (0-5) /hpf Urine WBC Not seen (0-5) /hpf Ur Squamous Epith Cells 0-5 (0-5) /hpf Urine Bacteria Not seen (FEW) /hpf Urine Mucus Not seen (FEW) /hpf Urine Opiates Screen Negative (RYNMPR=312) Ur Buprenorphine Scrn Negative (CUTOFF=10) Ur Oxycodone Screen Negative (ADH6XQ=182) Urine Methadone Screen Negative (IVV2BC=428) Ur Propoxyphene Screen Negative (POXAHK=300) Ur Barbiturates Screen Negative (VLBVFX=043) Ur Tricyclics Screen Negative (FQPPXO=251) Ur Phencyclidine Scrn Negative (CUTOFF=25) Ur Amphetamine Screen Negative (CQRZPH=151) U Methamphetamines Scrn Negative (FTVLSB=710) U Benzodiazepines Scrn Negative (JKVBFI=333) U Cocaine Metab Screen Negative (EYJPSV=334) U Marijuana (THC) Screen Negative (CUTOFF=50) Ethyl Alcohol (0.00) gm% MRSA (PCR) 04/19/20 04/19/20 04/19/20 Range/Units 08:21 08:21 08:21 WBC (4.23-9.07) K/mm3 RBC (4.63-6.08) M/mm3 Hgb (13.7-17.5) gm/dl Hct (40.1-51.0) % MCV (79.0-92.2) fl MCH (25.7-32.2) pg MCHC (32.2-35.5) g/dl RDW Std Deviation (35.1-43.9) fL Plt Count (163-337) K/mm3 MPV (9.4-12.3) fl Neut % (Auto) (34.0-67.9) % Lymph % (Auto) (21.8-53.1) % [place] % (Auto) (5.3-12.2) % Eos % (Auto) (0.8-7.0) Baso % (Auto) (0.1-1.2) % Neut # (Auto) (1.78-5.38) K/mm3 Lymph # (Auto) (1.32-3.57) K/mm3 [place] # (Auto) (0.30-0.82) K/mm3 Eos # (Auto) (0.04-0.54) K/mm3 Baso # (Auto) (0.01-0.08) K/mm3 Manual Slide Review PT 10.1 (9.7-12.0) SECONDS INR 0.93 APTT 21 L (22-31) SECONDS Sodium 136 (136-145) mEq/L Potassium 4.4 (3.5-5.1) mEq/L Chloride 102 (98-107) mEq/L Carbon Dioxide 24 (21-32) mEq/L Anion Gap 14.4 (5-15) BUN 29 H (7-18) mg/dL Creatinine 1.3 (0.7-1.3) mg/dL Est Cr Clr Drug Dosing 85.19 mL/min Estimated GFR (MDRD) > 60 (>60) mL/min BUN/Creatinine Ratio 22.3 H (14-18) Glucose 315 H (74-106) mg/dL POC Glucose (70-105) mg/dL Hemoglobin A1c 8.30 H (4.50-6.20) % Lactic Acid (0.4-2.0) mmol/L Calcium 8.9 (8.5-10.1) mg/dL Phosphorus (2.6-4.7) mg/dL Magnesium 1.9 (1.8-2.4) mg/dl Total Bilirubin 0.2 (0.2-1.0) mg/dL AST 25 (15-37) U/L ALT 42 (16-63) U/L Alkaline Phosphatase 101 (46-116) U/L Troponin I < 0.017 (0.00-0.056) ng/mL C-Reactive Protein <0.2 (<1.0) mg/dL Total Protein 7.1 (6.4-8.2) g/dl Albumin 3.1 L (3.4-5.0) g/dl Globulin 4.0 gm/dL Albumin/Globulin Ratio 0.8 L (1-2) Triglycerides (<150) mg/dL Cholesterol (<200) mg/dL LDL Cholesterol Direct (<100) mg/dL HDL Cholesterol (40-59) mg/dL Lipase (73-393) U/L Urine Color (Yellow) Urine Appearance (Clear) Urine pH (5.0-8.0) Ur Specific [place] (1.005-1.030) Urine Protein (Negative) Urine Glucose (UA) (Negative) Urine Ketones (Negative) Urine Occult Blood (Negative) Urine Nitrite (Negative) Urine Bilirubin (Negative) Urine Urobilinogen (0.2-1.0) Ur Leukocyte Esterase (Negative) Urine RBC (0-5) /hpf Urine WBC (0-5) /hpf Ur Squamous Epith Cells (0-5) /hpf Urine Bacteria (FEW) /hpf Urine Mucus (FEW) /hpf Urine Opiates Screen (EXYVJU=000) Ur Buprenorphine Scrn (CUTOFF=10) Ur Oxycodone Screen (QWP8PZ=561) Urine Methadone Screen (LVV6DF=093) Ur Propoxyphene Screen (DZYWIM=737) Ur Barbiturates Screen (OAFHWF=142) Ur Tricyclics Screen (SFXKXY=719) Ur Phencyclidine Scrn (CUTOFF=25) Ur Amphetamine Screen (OJIPBR=619) U Methamphetamines Scrn (MCISLE=186) U Benzodiazepines Scrn (GMWIPA=877) U Cocaine Metab Screen (EXFYGQ=610) U Marijuana (THC) Screen (CUTOFF=50) Ethyl Alcohol (0.00) gm% MRSA (PCR) 04/19/20 04/19/20 04/19/20 Range/Units 08:21 08:21 08:21 WBC (4.23-9.07) K/mm3 RBC (4.63-6.08) M/mm3 Hgb (13.7-17.5) gm/dl Hct (40.1-51.0) % MCV (79.0-92.2) fl MCH (25.7-32.2) pg MCHC (32.2-35.5) g/dl RDW Std Deviation (35.1-43.9) fL Plt Count (163-337) K/mm3 MPV (9.4-12.3) fl Neut % (Auto) (34.0-67.9) % Lymph % (Auto) (21.8-53.1) % [place] % (Auto) (5.3-12.2) % Eos % (Auto) (0.8-7.0) Baso % (Auto) (0.1-1.2) % Neut # (Auto) (1.78-5.38) K/mm3 Lymph # (Auto) (1.32-3.57) K/mm3 [place] # (Auto) (0.30-0.82) K/mm3 Eos # (Auto) (0.04-0.54) K/mm3 Baso # (Auto) (0.01-0.08) K/mm3 Manual Slide Review PT (9.7-12.0) SECONDS INR APTT (22-31) SECONDS Sodium (136-145) mEq/L Potassium (3.5-5.1) mEq/L Chloride (98-107) mEq/L Carbon Dioxide (21-32) mEq/L Anion Gap (5-15) BUN (7-18) mg/dL Creatinine (0.7-1.3) mg/dL Est Cr Clr Drug Dosing mL/min Estimated GFR (MDRD) (>60) mL/min BUN/Creatinine Ratio (14-18) Glucose (74-106) mg/dL POC Glucose (70-105) mg/dL Hemoglobin A1c (4.50-6.20) % Lactic Acid 1.9 (0.4-2.0) mmol/L Calcium (8.5-10.1) mg/dL Phosphorus (2.6-4.7) mg/dL Magnesium (1.8-2.4) mg/dl Total Bilirubin (0.2-1.0) mg/dL AST (15-37) U/L ALT (16-63) U/L Alkaline Phosphatase (46-116) U/L Troponin I (0.00-0.056) ng/mL C-Reactive Protein (<1.0) mg/dL Total Protein (6.4-8.2) g/dl Albumin (3.4-5.0) g/dl Globulin gm/dL Albumin/Globulin Ratio (1-2) Triglycerides 349 H (<150) mg/dL Cholesterol 245 H (<200) mg/dL LDL Cholesterol Direct 161 H* (<100) mg/dL HDL Cholesterol 26.0 L (40-59) mg/dL Lipase 1873 H (73-393) U/L Urine Color (Yellow) Urine Appearance (Clear) Urine pH (5.0-8.0) Ur Specific [place] (1.005-1.030) Urine Protein (Negative) Urine Glucose (UA) (Negative) Urine Ketones (Negative) Urine Occult Blood (Negative) Urine Nitrite (Negative) Urine Bilirubin (Negative) Urine Urobilinogen (0.2-1.0) Ur Leukocyte Esterase (Negative) Urine RBC (0-5) /hpf Urine WBC (0-5) /hpf Ur Squamous Epith Cells (0-5) /hpf Urine Bacteria (FEW) /hpf Urine Mucus (FEW) /hpf Urine Opiates Screen (HBCELD=164) Ur Buprenorphine Scrn (CUTOFF=10) Ur Oxycodone Screen (PLM7DO=337) Urine Methadone Screen (MYE3KL=898) Ur Propoxyphene Screen (NIMKHD=307) Ur Barbiturates Screen (CDJLCJ=679) Ur Tricyclics Screen (IOAAVO=359) Ur Phencyclidine Scrn (CUTOFF=25) Ur Amphetamine Screen (AUUEXF=944) U Methamphetamines Scrn (BGLAQJ=782) U Benzodiazepines Scrn (FGAYUA=960) U Cocaine Metab Screen (DCBVDG=808) U Marijuana (THC) Screen (CUTOFF=50) Ethyl Alcohol 0.00 (0.00) gm% MRSA (PCR) 04/19/20 04/19/20 04/19/20 Range/Units 15:02 17:03 17:43 WBC (4.23-9.07) K/mm3 RBC (4.63-6.08) M/mm3 Hgb (13.7-17.5) gm/dl Hct (40.1-51.0) % MCV (79.0-92.2) fl MCH (25.7-32.2) pg MCHC (32.2-35.5) g/dl RDW Std Deviation (35.1-43.9) fL Plt Count (163-337) K/mm3 MPV (9.4-12.3) fl Neut % (Auto) (34.0-67.9) % Lymph % (Auto) (21.8-53.1) % [place] % (Auto) (5.3-12.2) % Eos % (Auto) (0.8-7.0) Baso % (Auto) (0.1-1.2) % Neut # (Auto) (1.78-5.38) K/mm3 Lymph # (Auto) (1.32-3.57) K/mm3 [place] # (Auto) (0.30-0.82) K/mm3 Eos # (Auto) (0.04-0.54) K/mm3 Baso # (Auto) (0.01-0.08) K/mm3 Manual Slide Review PT (9.7-12.0) SECONDS INR APTT (22-31) SECONDS Sodium 136 (136-145) mEq/L Potassium 4.6 (3.5-5.1) mEq/L Chloride 102 (98-107) mEq/L Carbon Dioxide 24 (21-32) mEq/L Anion Gap 14.6 (5-15) BUN 24 H (7-18) mg/dL Creatinine 1.2 (0.7-1.3) mg/dL Est Cr Clr Drug Dosing 92.28 mL/min Estimated GFR (MDRD) > 60 (>60) mL/min BUN/Creatinine Ratio 20.0 H (14-18) Glucose 282 H (74-106) mg/dL POC Glucose 296 H (70-105) mg/dL Hemoglobin A1c (4.50-6.20) % Lactic Acid (0.4-2.0) mmol/L Calcium 8.9 (8.5-10.1) mg/dL Phosphorus (2.6-4.7) mg/dL Magnesium 1.7 L (1.8-2.4) mg/dl Total Bilirubin (0.2-1.0) mg/dL AST (15-37) U/L ALT (16-63) U/L Alkaline Phosphatase (46-116) U/L Troponin I (0.00-0.056) ng/mL C-Reactive Protein (<1.0) mg/dL Total Protein (6.4-8.2) g/dl Albumin (3.4-5.0) g/dl Globulin gm/dL Albumin/Globulin Ratio (1-2) Triglycerides (<150) mg/dL Cholesterol (<200) mg/dL LDL Cholesterol Direct (<100) mg/dL HDL Cholesterol (40-59) mg/dL Lipase (73-393) U/L Urine Color (Yellow) Urine Appearance (Clear) Urine pH (5.0-8.0) Ur Specific [place] (1.005-1.030) Urine Protein (Negative) Urine Glucose (UA) (Negative) Urine Ketones (Negative) Urine Occult Blood (Negative) Urine Nitrite (Negative) Urine Bilirubin (Negative) Urine Urobilinogen (0.2-1.0) Ur Leukocyte Esterase (Negative) Urine RBC (0-5) /hpf Urine WBC (0-5) /hpf Ur Squamous Epith Cells (0-5) /hpf Urine Bacteria (FEW) /hpf Urine Mucus (FEW) /hpf Urine Opiates Screen (XVBQPD=002) Ur Buprenorphine Scrn (CUTOFF=10) Ur Oxycodone Screen (PUN9HG=775) Urine Methadone Screen (YQU1GA=735) Ur Propoxyphene Screen (DTDEDL=798) Ur Barbiturates Screen (LTPYJH=006) Ur Tricyclics Screen (BFVSVE=049) Ur Phencyclidine Scrn (CUTOFF=25) Ur Amphetamine Screen (KMGWIR=037) U Methamphetamines Scrn (ZAIZWJ=225) U Benzodiazepines Scrn (XPONAH=010) U Cocaine Metab Screen (FNLAEU=795) U Marijuana (THC) Screen (CUTOFF=50) Ethyl Alcohol (0.00) gm% MRSA (PCR) Negative 04/19/20 04/20/20 04/20/20 Range/Units 22:36 05:01 05:01 WBC 18.27 H (4.23-9.07) K/mm3 RBC 5.17 (4.63-6.08) M/mm3 Hgb 15.8 (13.7-17.5) gm/dl Hct 46.1 (40.1-51.0) % MCV 89.2 (79.0-92.2) fl MCH 30.6 (25.7-32.2) pg MCHC 34.3 (32.2-35.5) g/dl RDW Std Deviation 43.5 (35.1-43.9) fL Plt Count 254 (163-337) K/mm3 MPV 11.4 (9.4-12.3) fl Neut % (Auto) 78.7 H (34.0-67.9) % Lymph % (Auto) 11.4 L (21.8-53.1) % [place] % (Auto) 9.1 (5.3-12.2) % Eos % (Auto) 0.5 L (0.8-7.0) Baso % (Auto) 0.1 (0.1-1.2) % Neut # (Auto) 14.37 H (1.78-5.38) K/mm3 Lymph # (Auto) 2.08 (1.32-3.57) K/mm3 [place] # (Auto) 1.66 H (0.30-0.82) K/mm3 Eos # (Auto) 0.10 (0.04-0.54) K/mm3 Baso # (Auto) 0.02 (0.01-0.08) K/mm3 Manual Slide Review Normal smear PT (9.7-12.0) SECONDS INR APTT (22-31) SECONDS Sodium 135 L (136-145) mEq/L Potassium 4.2 (3.5-5.1) mEq/L Chloride 101 (98-107) mEq/L Carbon Dioxide 25 (21-32) mEq/L Anion Gap 13.2 (5-15) BUN 22 H (7-18) mg/dL Creatinine 1.1 (0.7-1.3) mg/dL Est Cr Clr Drug Dosing 100.67 mL/min Estimated GFR (MDRD) > 60 (>60) mL/min BUN/Creatinine Ratio 20.0 H (14-18) Glucose 241 H (74-106) mg/dL POC Glucose 185 H (70-105) mg/dL Hemoglobin A1c (4.50-6.20) % Lactic Acid (0.4-2.0) mmol/L Calcium 8.2 L (8.5-10.1) mg/dL Phosphorus 2.8 (2.6-4.7) mg/dL Magnesium 2.1 (1.8-2.4) mg/dl Total Bilirubin 0.5 (0.2-1.0) mg/dL AST 24 (15-37) U/L ALT 42 (16-63) U/L Alkaline Phosphatase 77 (46-116) U/L Troponin I (0.00-0.056) ng/mL C-Reactive Protein (<1.0) mg/dL Total Protein 6.6 (6.4-8.2) g/dl Albumin 2.8 L (3.4-5.0) g/dl Globulin 3.8 gm/dL Albumin/Globulin Ratio 0.7 L (1-2) Triglycerides (<150) mg/dL Cholesterol (<200) mg/dL LDL Cholesterol Direct (<100) mg/dL HDL Cholesterol (40-59) mg/dL Lipase (73-393) U/L Urine Color (Yellow) Urine Appearance (Clear) Urine pH (5.0-8.0) Ur Specific [place] (1.005-1.030) Urine Protein (Negative) Urine Glucose (UA) (Negative) Urine Ketones (Negative) Urine Occult Blood (Negative) Urine Nitrite (Negative) Urine Bilirubin (Negative) Urine Urobilinogen (0.2-1.0) Ur Leukocyte Esterase (Negative) Urine RBC (0-5) /hpf Urine WBC (0-5) /hpf Ur Squamous Epith Cells (0-5) /hpf Urine Bacteria (FEW) /hpf Urine Mucus (FEW) /hpf Urine Opiates Screen (TZUZJI=771) Ur Buprenorphine Scrn (CUTOFF=10) Ur Oxycodone Screen (STW6ZP=463) Urine Methadone Screen (EGU0JU=470) Ur Propoxyphene Screen (UTTOFF=968) Ur Barbiturates Screen (ZOVNVM=917) Ur Tricyclics Screen (PFLBQH=107) Ur Phencyclidine Scrn (CUTOFF=25) Ur Amphetamine Screen (UQTHCH=780) U Methamphetamines Scrn (TKZXVD=662) U Benzodiazepines Scrn (OAVSBW=530) U Cocaine Metab Screen (XFGWMW=549) U Marijuana (THC) Screen (CUTOFF=50) Ethyl Alcohol (0.00) gm% MRSA (PCR) Med Orders - Current: Current Medications Enoxaparin Sodium (Lovenox) 40 mg SUBCUT DAILY VERONIQUE Hydromorphone HCl (Dilaudid) 1 mg IVPUSH Q1H PRN PRN Reason: Pain (severe 7-10) Last Admin: 04/20/20 02:09 Dose: 1 mg Lactated Ringer's (Ringers, Lactated) 1,000 mls @ 150 mls/hr IV ASDIRECTED VERONIQUE Last Admin: 04/20/20 02:15 Dose: 150 mls/hr Insulin Human Lispro (Humalog) 0 unit SUBCUT QIDACANDBED VERONIQUE; Protocol Last Admin: 04/19/20 22:41 Dose: 1 unit Ketorolac Tromethamine (Toradol) 30 mg IVPUSH Q6H PRN PRN Reason: Pain Last Admin: 04/20/20 04:33 Dose: 30 mg Ondansetron HCl (Zofran) 4 mg IV Q4H PRN PRN Reason: Nausea/Vomiting Last Admin: 04/19/20 15:09 Dose: 4 mg Sodium Chloride (Saline Flush) 10 ml FLUSH ONETIME PRN PRN Reason: IV FLUSH Last Admin: 04/19/20 09:43 Dose: 10 ml Discontinued Medications Diatrizoate Meglum/Diatrizoate Sod (Gastrografin 37%) 120 ml PO ONETIME ONE Stop: 04/19/20 08:54 Last Admin: 04/19/20 09:43 Dose: 90 ml Fentanyl (Sublimaze) 100 mcg IVPUSH ONETIME ONE Stop: 04/19/20 10:27 Last Admin: 04/19/20 10:35 Dose: 100 mcg Hydromorphone HCl (Dilaudid) 1 mg IVPUSH ONETIME ONE Stop: 04/19/20 07:05 Last Admin: 04/19/20 07:36 Dose: 1 mg Hydromorphone HCl (Dilaudid) 0.5 mg IVPUSH ONETIME ONE Stop: 04/19/20 08:09 Last Admin: 04/19/20 08:20 Dose: 0.5 mg Hydromorphone HCl (Dilaudid) 1 mg IVPUSH ONETIME ONE Stop: 04/19/20 09:23 Last Admin: 04/19/20 09:34 Dose: 1 mg Hydromorphone HCl (Dilaudid) 0.5 mg IVPUSH ONETIME ONE Stop: 04/19/20 12:11 Last Admin: 04/19/20 12:16 Dose: 0.5 mg Hydromorphone HCl (Dilaudid) 0.5 mg IVPUSH NOW STA Stop: 04/19/20 12:38 Last Admin: 04/19/20 12:43 Dose: 0.5 mg Sodium Chloride (Normal Saline) 1,000 mls @ 999 mls/hr IV ASDIRECTED VERONIQUE Last Admin: 04/19/20 07:35 Dose: 999 mls/hr Magnesium Sulfate 2 gm/ Premix 50 mls @ 25 mls/hr IV ONETIME ONE Stop: 04/19/20 19:38 Last Admin: 04/19/20 17:53 Dose: 25 mls/hr Iopamidol (Isovue-300 (61%)) 50 ml IVPUSH ONETIME ONE Stop: 04/19/20 08:54 Last Admin: 04/19/20 09:43 Dose: 50 ml Iopamidol (Isovue-300 (61%)) 100 ml IVPUSH ONETIME ONE Stop: 04/19/20 08:54 Last Admin: 04/19/20 09:43 Dose: 100 ml Ketorolac Tromethamine (Toradol) 30 mg IVPUSH ONETIME ONE Stop: 04/19/20 15:31 Last Admin: 04/19/20 15:29 Dose: 30 mg Metoclopramide HCl (Reglan) 10 mg IVPUSH ONETIME ONE Stop: 04/19/20 07:05 Last Admin: 04/19/20 07:35 Dose: 10 mg Morphine Sulfate (Morphine) 10 mg IVPUSH ONETIME ONE Stop: 04/19/20 11:37 Last Admin: 04/19/20 11:43 Dose: 10 mg - Exam Quality Assessment: No: Supplemental Oxygen General: Alert, Oriented HEENT: Pupils Equal, Mucous Membr. Moist/[place] Neck: Supple Lungs: Clear to Auscultation, Normal Respiratory Effort Cardiovascular: Regular Rate, Regular Rhythm GI/Abdominal Exam: Normal Bowel Sounds, Soft, Distended (Mild distention), Tender (Diffuse tenderness). No: Guarding, Rigid, Rebound Extremities: Non-Tender, No Pedal Edema, Normal Capillary Refill Skin: Warm, Dry, Intact Psy/Mental Status: Alert, Normal Affect, Normal Mood Sepsis Event Note - Evaluation Sepsis Screening Result: No Definite Risk - Focused Exam Vital Signs: Vital Signs Temp Pulse Resp BP Pulse Ox 04/20/20 04:34 97.9 F 89 19 164/97 H 99 04/19/20 23:47 97.7 F 83 19 151/70 H 97 Date Exam was Performed: 04/20/20 Time Exam was Performed: 08:19 - Problem List Review Problem List Initiated/Reviewed/Updated: Yes - My Orders Last 24 Hours: My Active Orders 04/19/20 12:44 Oxygen Therapy [RC] PRN VTE/DVT Education [RC] PER UNIT ROUTINE Vital Signs [RC] Q4HR Resuscitation Status Routine 04/19/20 12:49 Up ad Vandana [RC] ASDIRECTED Consult to Diabetic Nurse Specialist [CONS] Routine Ondansetron [Zofran] 4 mg IV Q4H PRN 04/19/20 13:00 HYDROmorphone [Dilaudid] 1 mg IVPUSH Q1H PRN 04/19/20 13:06 Blood Glucose Check, Bedside [RC] QIDACANDBED 04/19/20 13:09 Intake and Output Strict [RC] ASDIRECTED 04/19/20 15:30 CULTURE MRSA [RM] Routine 04/19/20 17:00 Insulin Lispro [HumaLOG] See Protocol SUBCUT QIDACANDBED 04/19/20 21:30 Ketorolac [Toradol] 30 mg IVPUSH Q6H PRN 04/19/20 Lunch Nothing per Oral Now Diet [DIET] 04/20/20 08:00 Abdomen Ltd [US] Routine 04/20/20 09:00 Enoxaparin [Lovenox] 40 mg SUBCUT DAILY - Plan Plan:: Acute pancreatitis-unknown cause * Lipase 1873 on admission * Poorly controlled diabetic * CT did not show any gallstones * Triglycerides less than 400 * Corrected calcium 9.6 on admission * No signs of infection * No history of recent drinking * No high risk medications for pancreatitis * Still a possibility that biliary sludge or obstruction could be causing his pancreatitis. * [place] 2 score 2 equals 3.8% predicted rate Plan * Admit to floor for IV fluid resuscitation and pain management * Dilaudid 1 mg IV every hour as needed * Toradol 30 mg IV every 6 hours as needed * N.p.o. except ice chips until pain is improved * BMP and magnesium this evening * CMP, magnesium, CBC, phosphorus in the morning * Ultrasound of the gallbladder and liver this morning Insulin-dependent type 2 diabetes * Blood sugars reportedly normally between 150 and 200 at home. 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 VTE prophylaxis with Lovenox CODE STATUS: Full code Disposition admit to medical floor for pain management and IV fluids
[2020-04-20] MEDS: Insulin Lispro 100 Units/ML 3 ML Vial SUBCUT SCH ×5 (09:17→22:57)
[2020-04-20] MEDS: Enoxaparin 40 MG/0.4 ML Syringe SUBCUT SCH (09:19)
--- NOTE | 2020-04-20 10:47 | US ---
Limited abdominal ultrasound: Multiple real-time images of the upper right abdomen were obtained. Comparison: Previous CT abdomen and pelvis exam of 04/19/20. Technologist's note: Poor ultrasound window, suboptimal exam Liver is echogenic most likely due to fatty infiltration. Hypoechoic area is seen next to the gallbladder most likely representing an area of focal fatty sparing. Gallbladder contains no shadowing gallstones. No gallbladder wall thickening or definite biliary duct dilatation is seen. Right kidney shows no hydronephrosis or mass and has a length of 11.3 cm. Pancreas is obscured from bowel gas. Inferior vena cava is mostly obscured. Main portal vein shows normal hepatopedal flow. Impression: 1. Nonvisualized pancreas and inferior vena cava due to bowel gas. 2. Possible fatty infiltration with focal fatty sparing next to the gallbladder. 3. No additional abnormality is definitely appreciated on right upper quadrant abdominal ultrasound. Diagnostic code #2 This report was dictated in [facility]
--- NOTE | 2020-04-20 11:02 | PCM.SN.2 ---
- Free Text/Narrative Note: Called by nursing secondary to patient screening and has a sepsis risk. Patient has an elevated white count at heart rate. Patient has acute pancreatitis with no source of infection, therefore ruling out sepsis.
[2020-04-21] MEDS: HYDROmorphone 1 MG/ML Syringe IVPUSH PRN ×11 (00:59→22:58)
[2020-04-21] MEDS: Ketorolac 30 MG/ML SDV IVPUSH PRN ×4 (04:33→22:45)
[2020-04-21] MEDS: Lactated Ringers 1,000 ML IV SCH (05:29)
[2020-04-21] MEDS ORDERED: Dextrose 5%-0.9% NaCl 1,000 ML IV SCH (08:00)
[2020-04-21] MEDS: Enoxaparin 40 MG/0.4 ML Syringe SUBCUT SCH (08:18)
[2020-04-21] MEDS: Insulin Lispro 100 Units/ML 3 ML Vial SUBCUT SCH ×4 (08:19→21:24)
[2020-04-21] MEDS: Sodium Chloride 0.9% 1,000 ML IV SCH ×3 (09:37→22:48)
--- NOTE | 2020-04-21 10:27 | PCM.PN ---
- General Info Date of Service: 04/21/20 Admission Dx/Problem (Free Text): Admission Diagnosis/Problem Admission Diagnosis/Problem Acute pancreatitis Subjective Update: Patient states that his pain is continuing to improving, but pain is still moderately severe. He denies any fever or shortness of breath. Functional Status: Reports: Pain Controlled - Review of Systems General: Reports: No Symptoms HEENT: Reports: No Symptoms Pulmonary: Reports: No Symptoms Cardiovascular: Reports: No Symptoms Gastrointestinal: Reports: Abdominal Pain Musculoskeletal: Reports: No Symptoms Psychiatric: Reports: No Symptoms - Patient Data Vitals - Most Recent: Last Vital Signs Temp 98.8 F 04/21/20 07:41 Pulse 111 H 04/21/20 07:41 Resp 24 H 04/21/20 07:41 BP 150/72 H 04/21/20 07:41 Pulse Ox 98 04/21/20 07:41 Weight - Most Recent: 295 lb 6.4 oz I&O - Last 24 Hours: Intake & Output 04/20/20 04/21/20 04/21/20 22:59 06:59 14:59 Intake Total 1833 1836 Output Total 500 Balance 1833 1336 Lab Results Last 24 Hours: Laboratory Results - last 24 hr 04/20/20 04/20/20 04/20/20 Range/Units 11:08 16:36 20:47 WBC (4.23-9.07) K/mm3 RBC (4.63-6.08) M/mm3 Hgb (13.7-17.5) gm/dl Hct (40.1-51.0) % MCV (79.0-92.2) fl MCH (25.7-32.2) pg MCHC (32.2-35.5) g/dl RDW Std Deviation (35.1-43.9) fL Plt Count (163-337) K/mm3 MPV (9.4-12.3) fl Neut % (Auto) (34.0-67.9) % Lymph % (Auto) (21.8-53.1) % [place] % (Auto) (5.3-12.2) % Eos % (Auto) (0.8-7.0) Baso % (Auto) (0.1-1.2) % Neut # (Auto) (1.78-5.38) K/mm3 Lymph # (Auto) (1.32-3.57) K/mm3 [place] # (Auto) (0.30-0.82) K/mm3 Eos # (Auto) (0.04-0.54) K/mm3 Baso # (Auto) (0.01-0.08) K/mm3 Manual Slide Review Sodium (136-145) mEq/L Potassium (3.5-5.1) mEq/L Chloride (98-107) mEq/L Carbon Dioxide (21-32) mEq/L Anion Gap (5-15) BUN (7-18) mg/dL Creatinine (0.7-1.3) mg/dL Est Cr Clr Drug Dosing mL/min Estimated GFR (MDRD) (>60) mL/min BUN/Creatinine Ratio (14-18) Glucose (74-106) mg/dL POC Glucose 232 H 216 H 190 H (70-105) mg/dL Calcium (8.5-10.1) mg/dL Phosphorus (2.6-4.7) mg/dL Magnesium (1.8-2.4) mg/dl Total Bilirubin (0.2-1.0) mg/dL AST (15-37) U/L ALT (16-63) U/L Alkaline Phosphatase (46-116) U/L Total Protein (6.4-8.2) g/dl Albumin (3.4-5.0) g/dl Globulin gm/dL Albumin/Globulin Ratio (1-2) Lipase (73-393) U/L 04/21/20 04/21/20 04/21/20 Range/Units 05:30 06:21 06:21 WBC 19.98 H (4.23-9.07) K/mm3 RBC 4.83 (4.63-6.08) M/mm3 Hgb 14.8 (13.7-17.5) gm/dl Hct 43.8 (40.1-51.0) % MCV 90.7 (79.0-92.2) fl MCH 30.6 (25.7-32.2) pg MCHC 33.8 (32.2-35.5) g/dl RDW Std Deviation 44.4 H (35.1-43.9) fL Plt Count 228 (163-337) K/mm3 MPV 11.2 (9.4-12.3) fl Neut % (Auto) 79.3 H (34.0-67.9) % Lymph % (Auto) 9.4 L (21.8-53.1) % [place] % (Auto) 9.6 (5.3-12.2) % Eos % (Auto) 1.0 (0.8-7.0) Baso % (Auto) 0.3 (0.1-1.2) % Neut # (Auto) 15.86 H (1.78-5.38) K/mm3 Lymph # (Auto) 1.88 (1.32-3.57) K/mm3 [place] # (Auto) 1.92 H (0.30-0.82) K/mm3 Eos # (Auto) 0.19 (0.04-0.54) K/mm3 Baso # (Auto) 0.05 (0.01-0.08) K/mm3 Manual Slide Review Normal smear Sodium 134 L (136-145) mEq/L Potassium 4.0 (3.5-5.1) mEq/L Chloride 100 (98-107) mEq/L Carbon Dioxide 27 (21-32) mEq/L Anion Gap 11.0 (5-15) BUN 15 (7-18) mg/dL Creatinine 1.1 (0.7-1.3) mg/dL Est Cr Clr Drug Dosing 100.67 mL/min Estimated GFR (MDRD) > 60 (>60) mL/min BUN/Creatinine Ratio 13.6 L (14-18) Glucose 189 H (74-106) mg/dL POC Glucose 170 H (70-105) mg/dL Calcium 8.4 L (8.5-10.1) mg/dL Phosphorus 2.5 L (2.6-4.7) mg/dL Magnesium 1.9 (1.8-2.4) mg/dl Total Bilirubin 1.1 H (0.2-1.0) mg/dL AST 18 (15-37) U/L ALT 31 (16-63) U/L Alkaline Phosphatase 72 (46-116) U/L Total Protein 6.4 (6.4-8.2) g/dl Albumin 2.4 L (3.4-5.0) g/dl Globulin 4.0 gm/dL Albumin/Globulin Ratio 0.6 L (1-2) Lipase (73-393) U/L 04/21/20 Range/Units 06:21 WBC (4.23-9.07) K/mm3 RBC (4.63-6.08) M/mm3 Hgb (13.7-17.5) gm/dl Hct (40.1-51.0) % MCV (79.0-92.2) fl MCH (25.7-32.2) pg MCHC (32.2-35.5) g/dl RDW Std Deviation (35.1-43.9) fL Plt Count (163-337) K/mm3 MPV (9.4-12.3) fl Neut % (Auto) (34.0-67.9) % Lymph % (Auto) (21.8-53.1) % [place] % (Auto) (5.3-12.2) % Eos % (Auto) (0.8-7.0) Baso % (Auto) (0.1-1.2) % Neut # (Auto) (1.78-5.38) K/mm3 Lymph # (Auto) (1.32-3.57) K/mm3 [place] # (Auto) (0.30-0.82) K/mm3 Eos # (Auto) (0.04-0.54) K/mm3 Baso # (Auto) (0.01-0.08) K/mm3 Manual Slide Review Sodium (136-145) mEq/L Potassium (3.5-5.1) mEq/L Chloride (98-107) mEq/L Carbon Dioxide (21-32) mEq/L Anion Gap (5-15) BUN (7-18) mg/dL Creatinine (0.7-1.3) mg/dL Est Cr Clr Drug Dosing mL/min Estimated GFR (MDRD) (>60) mL/min BUN/Creatinine Ratio (14-18) Glucose (74-106) mg/dL POC Glucose (70-105) mg/dL Calcium (8.5-10.1) mg/dL Phosphorus (2.6-4.7) mg/dL Magnesium (1.8-2.4) mg/dl Total Bilirubin (0.2-1.0) mg/dL AST (15-37) U/L ALT (16-63) U/L Alkaline Phosphatase (46-116) U/L Total Protein (6.4-8.2) g/dl Albumin (3.4-5.0) g/dl Globulin gm/dL Albumin/Globulin Ratio (1-2) Lipase 651 H (73-393) U/L Jonathan Results Last 24 Hours: Microbiology 04/19/20 15:30 MRSA Culture - Final Nasal/Axilla/Groin NO MRSA ISOLATED Med Orders - Current: Current Medications Enoxaparin Sodium (Lovenox) 40 mg SUBCUT DAILY [facility] Last Admin: 04/21/20 08:18 Dose: 40 mg Hydromorphone HCl (Dilaudid) 1 mg IVPUSH Q1H PRN PRN Reason: Pain (severe 7-10) Last Admin: 04/21/20 09:51 Dose: 1 mg Sodium Chloride (Normal Saline) 1,000 mls @ 150 mls/hr IV ASDIRECTED [facility] Last Admin: 04/21/20 09:37 Dose: 150 mls/hr Insulin Human Lispro (Humalog) 0 unit SUBCUT QIDACANDBED [facility]; Protocol Last Admin: 04/21/20 08:19 Dose: 1 unit Ketorolac Tromethamine (Toradol) 30 mg IVPUSH Q6H PRN PRN Reason: Pain Last Admin: 04/21/20 04:33 Dose: 30 mg Ondansetron HCl (Zofran) 4 mg IV Q4H PRN PRN Reason: Nausea/Vomiting Last Admin: 04/19/20 15:09 Dose: 4 mg Sodium Chloride (Saline Flush) 10 ml FLUSH ONETIME PRN PRN Reason: IV FLUSH Last Admin: 04/19/20 09:43 Dose: 10 ml Discontinued Medications Diatrizoate Meglum/Diatrizoate Sod (Gastrografin 37%) 120 ml PO ONETIME ONE Stop: 04/19/20 08:54 Last Admin: 04/19/20 09:43 Dose: 90 ml Fentanyl (Sublimaze) 100 mcg IVPUSH ONETIME ONE Stop: 04/19/20 10:27 Last Admin: 04/19/20 10:35 Dose: 100 mcg Hydromorphone HCl (Dilaudid) 1 mg IVPUSH ONETIME ONE Stop: 04/19/20 07:05 Last Admin: 04/19/20 07:36 Dose: 1 mg Hydromorphone HCl (Dilaudid) 0.5 mg IVPUSH ONETIME ONE Stop: 04/19/20 08:09 Last Admin: 04/19/20 08:20 Dose: 0.5 mg Hydromorphone HCl (Dilaudid) 1 mg IVPUSH ONETIME ONE Stop: 04/19/20 09:23 Last Admin: 04/19/20 09:34 Dose: 1 mg Hydromorphone HCl (Dilaudid) 0.5 mg IVPUSH ONETIME ONE Stop: 04/19/20 12:11 Last Admin: 04/19/20 12:16 Dose: 0.5 mg Hydromorphone HCl (Dilaudid) 0.5 mg IVPUSH NOW STA Stop: 04/19/20 12:38 Last Admin: 04/19/20 12:43 Dose: 0.5 mg Sodium Chloride (Normal Saline) 1,000 mls @ 999 mls/hr IV ASDIRECTED [facility] Last Admin: 04/19/20 07:35 Dose: 999 mls/hr Lactated Ringer's (Ringers, Lactated) 1,000 mls @ 150 mls/hr IV ASDIRECTED [facility] Last Admin: 04/21/20 05:29 Dose: 150 mls/hr Magnesium Sulfate 2 gm/ Premix 50 mls @ 25 mls/hr IV ONETIME ONE Stop: 04/19/20 19:38 Last Admin: 04/19/20 17:53 Dose: 25 mls/hr Dextrose/Sodium Chloride (Dextrose 5%-Normal Saline) 1,000 mls @ 150 mls/hr IV ASDIRECTED [facility] Iopamidol (Isovue-300 (61%)) 50 ml IVPUSH ONETIME ONE Stop: 04/19/20 08:54 Last Admin: 04/19/20 09:43 Dose: 50 ml Iopamidol (Isovue-300 (61%)) 100 ml IVPUSH ONETIME ONE Stop: 04/19/20 08:54 Last Admin: 04/19/20 09:43 Dose: 100 ml Ketorolac Tromethamine (Toradol) 30 mg IVPUSH ONETIME ONE Stop: 04/19/20 15:31 Last Admin: 04/19/20 15:29 Dose: 30 mg Metoclopramide HCl (Reglan) 10 mg IVPUSH ONETIME ONE Stop: 04/19/20 07:05 Last Admin: 04/19/20 07:35 Dose: 10 mg Morphine Sulfate (Morphine) 10 mg IVPUSH ONETIME ONE Stop: 04/19/20 11:37 Last Admin: 04/19/20 11:43 Dose: 10 mg - Exam General: Alert, Oriented, No Acute Distress HEENT: Pupils Equal, Mucous Membr. Moist/[place] Neck: Supple Lungs: Clear to Auscultation, Normal Respiratory Effort Cardiovascular: Regular Rhythm, No Murmurs, Tachycardia GI/Abdominal Exam: Soft, No Distention (Obese), Tender (Epigastric tenderness without guarding or rebound), Abnormal Bowel Sounds (Decreased throughout) Extremities: Normal Inspection, Normal Range of Motion, Non-Tender, No Pedal Edema, Normal Capillary Refill Skin: Warm, Dry, Intact Psy/Mental Status: Alert, Normal Affect, Normal Mood Sepsis Event Note - Evaluation Sepsis Screening Result: Severe Sepsis Risk - Focused Exam Vital Signs: Vital Signs Temp Pulse Resp BP Pulse Ox 04/21/20 07:41 98.8 F 111 H 24 H 150/72 H 98 04/21/20 02:58 98.8 F 101 H 19 136/84 97 04/21/20 01:01 99.3 F 102 H 19 155/67 H 96 Date Exam was Performed: 04/21/20 Time Exam was Performed: 10:20 - Problem List Review Problem List Initiated/Reviewed/Updated: Yes - My Orders Last 24 Hours: My Active Orders 04/21/20 08:00 Sodium Chloride 0.9% [Normal Saline] 1,000 ml IV ASDIRECTED - Plan Plan:: Acute pancreatitis-unknown cause * This morning patient symptomatically is better * Lipase 1873 on admission -repeat 651 * Poorly controlled diabetic * CT and ultrasound did not show any gallstones * Triglycerides less than 400 * Corrected calcium 9.6 on admission * No signs of infection * No history of recent drinking * No high risk medications for pancreatitis * Still a possibility that biliary sludge could be causing his pancreatitis. * [place] II score 2 = 3.8% predicted rate Plan * Admit to floor for IV fluid resuscitation and pain management * Dilaudid 1 mg IV every hour as needed * Toradol 30 mg IV every 6 hours as needed for maximum of 5 days * N.p.o. except ice chips until pain is improved * CMP, magnesium, CBC, phosphorus in the morning * If patient does not continue to improve after 48 to 72 hours patient may need to be transferred for EUS Systemic inflammatory response syndrome * Patient fulfills SIRS criteria * Heart rate greater than 90 (111), respiratory rate greater than 20 (24), white blood cell count greater than 12,000 (20,000) * Still no signs of infection, afebrile, elevated white count without bands or toxic granules Plan * Continue IV fluids * Continue to follow vitals closely * If not continuing to improve after 48 to 72 hours patient may need for EUS Insulin-dependent type 2 diabetes * Blood sugars reportedly normally between 150 and 200 at home. 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 VTE prophylaxis with Lovenox CODE STATUS: Full code Disposition admit to medical floor for pain management and IV fluids
[2020-04-21] MEDS: Nicotine 14 MG/24 Hr Patch TRDERM SCH (13:02)
[2020-04-22] MEDS: HYDROmorphone 1 MG/ML Syringe IVPUSH PRN ×6 (00:23→10:07)
[2020-04-22] MEDS: Sodium Chloride 0.9% 1,000 ML IV SCH ×2 (05:17→12:45)
[2020-04-22] MEDS: Ketorolac 30 MG/ML SDV IVPUSH PRN ×3 (05:17→18:56)
[2020-04-22] MEDS: Insulin Lispro 100 Units/ML 3 ML Vial SUBCUT SCH ×3 (06:23→16:06)
[2020-04-22] MEDS: Enoxaparin 40 MG/0.4 ML Syringe SUBCUT SCH (08:21)
[2020-04-22] MEDS ORDERED: HYDROmorphone 1 MG/ML Syringe IVPUSH PRN ×2 (10:09→17:14)
[2020-04-22] MEDS: Potassium Phosphates 30 MMOLE in Sodium Chloride 0.9% 500 ML IV SCH ×2 (12:45→20:03)
[2020-04-22] MEDS: Nicotine 14 MG/24 Hr Patch TRDERM SCH (13:08)
[2020-04-22] MEDS ORDERED: Morphine 2 MG/ML Syringe IVPUSH PRN (14:09)
[2020-04-22] MEDS ORDERED: Sodium Chloride 0.9% 1,000 ML IV SCH (15:30)
--- NOTE | 2020-04-22 16:48 | PCM.PN ---
- General Info Date of Service: 04/22/20 Subjective Update: Feeling better Abdomen still sore Reports increased discomfort prior to voiding urine Feeling hungery - Patient Data Vitals - Most Recent: Last Vital Signs Temp 99.7 F 04/22/20 15:48 Pulse 94 04/22/20 15:48 Resp 20 04/22/20 15:48 BP 152/85 H 04/22/20 15:48 Pulse Ox 99 04/22/20 15:48 Weight - Most Recent: 134.399 kg - Exam General: Alert, Oriented, Cooperative, No Acute Distress HEENT: Pupils Equal, Pupils Reactive Neck: Supple, Trachea Midline, No JVD Lungs: Normal Respiratory Effort. No: Crackles, Rales, Rhonchi, Rub, Stridor Cardiovascular: Regular Rate, Regular Rhythm. No: Murmurs, Gallops, Rubs GI/Abdominal Exam: Guarding, Tender, Abnormal Bowel Sounds (slow). No: Rigid, Rebound Back Exam: Normal Inspection, CVA Tenderness (L), CVA Tenderness (R) Neurological: No New Focal Deficit Sepsis Event Note - Evaluation Sepsis Screening Result: No Definite Risk - Focused Exam Vital Signs: Vital Signs Temp Pulse Resp BP Pulse Ox 04/22/20 15:48 99.7 F 94 20 152/85 H 99 04/22/20 12:58 99.0 F 91 16 146/57 H 97 04/22/20 08:19 97.9 F 90 16 139/74 96 Date Exam was Performed: 04/22/20 Time Exam was Performed: 20:05 - Problem List & Annotations (1) Acute pancreatitis SNOMED Code(s): 548375178 Code(s): K85.90 - ACUTE PANCREATITIS WITHOUT NECROSIS OR INFECTION, UNSP Status: Acute Current Visit: Yes Qualifiers: Pancreatitis type: unspecified pancreatitis type Acute pancreatitis complication: no infection or necrosis Qualified Code(s): K85.90 - Acute pancreatitis without necrosis or infection, unspecified (2) Obesity, Class II, BMI 35-39.9 SNOMED Code(s): 461729924865091 Code(s): E66.9 - OBESITY, UNSPECIFIED Status: Acute Current Visit: Yes (3) Controlled type 2 diabetes mellitus with insulin therapy SNOMED Code(s): 61079029, 536344811 Code(s): E11.9 - TYPE 2 DIABETES MELLITUS WITHOUT COMPLICATIONS; Z79.4 - [facility] (CURRENT) USE OF INSULIN Status: Acute Current Visit: Yes (4) Hyponatremia SNOMED Code(s): 00443391 Code(s): E87.1 - HYPO-OSMOLALITY AND HYPONATREMIA Status: Acute Current Visit: Yes (5) Hypocalcemia SNOMED Code(s): 1888705 Code(s): E83.51 - HYPOCALCEMIA Status: Acute Current Visit: Yes (6) Hypophosphatemia SNOMED Code(s): 1655347 Code(s): E83.39 - OTHER DISORDERS OF PHOSPHORUS METABOLISM Status: Acute Current Visit: Yes (7) Leukocytosis SNOMED Code(s): 068475007, 994154609 Code(s): D72.829 - ELEVATED WHITE BLOOD CELL COUNT, UNSPECIFIED Status: Acute Current Visit: Yes (8) Dyslipidemia SNOMED Code(s): 835945144 Code(s): E78.5 - HYPERLIPIDEMIA, UNSPECIFIED Status: Acute Current Visit : Yes (9) Non-alcoholic fatty liver disease SNOMED Code(s): 452286813 Code(s): K76.0 - FATTY (CHANGE OF) LIVER, NOT ELSEWHERE CLASSIFIED Status: Acute Current Visit: Yes - Problem List Review Problem List Initiated/Reviewed/Updated: Yes - Assessment Assessment:: 04/20/2020-04/21/2020 - Lipase 1873 on admission - Triglycerides normal - Abdominal imaging without any obvious cause, no reported dilated CBD or gall stones - Only change in medication recently was Levemir to Tresiba - Pain control with Dilaudid 1mg q1h PRN and Toradol 30mg IV q6h - SIRS criteria for HR, RR and WBC count--> w/o signs of infection - Developed hyponatremia so started on NS 04/22/2020 - Pain control adjusted by decreasing frequency of Dilaudid - Plan Plan:: Acute pancreatitis Hyponatremia Hypocalcemia Hypophosphatemia - Pain control, taper off as tolerated - Advance diet once pain control without need for medications - Monitor volume status - Replace PO4 Controlled type 2 diabetes mellitus with insulin therapy - Continue Accuchecks - Insulin - Hypoglycemia protocol Dyslipidemia - Will need diet and lifestyle modifications upon discharge prior to starting statins PROPHYLAXIS DVT-Lovenox GI- not indicated CODE STATUS: FULL CODE DISPOSITION: Patient will remain admitted for pain control, NPO status.
[2020-04-22] MEDS ORDERED: Iopamidol 612 MG/ML 100 ML Bottle IVPUSH ONE (17:50)
[2020-04-22] MEDS ORDERED: Diatrizoate Meglumine/Diatrizoate Sodium 37% 120 ML Bottle PO ONE (17:50)
[2020-04-22] MEDS ORDERED: Sodium Chloride 0.9% 10 ML Syringe FLUSH PRN (17:50)
--- NOTE | 2020-04-22 18:51 | CT ---
CT abdomen and pelvis Technique: Multiple axial sections were obtained from above the dome of the diaphragm inferiorly through the pubic symphysis. Intravenous contrast and oral contrast has been given. Comparison: Prior CT abdomen and pelvis exam of 04/19/20. Findings: Small bilateral pleural effusions are noted as well as mild adjacent atelectasis. This is an interval change from previous study. Liver shows fatty infiltration. Gallbladder is slightly distended but shows no calcified gallstones. Spleen appears within normal limits. Adrenal glands show no nodule. Inflammatory change is noted around the pancreas. Inflammatory change is slightly more prominent than on previous exam. Fluid is seen within the paracolic gutters which is also slightly more prominent than previous study. Confluent fluid is seen within the pelvis which is an interval change from previous study. Bowel wall thickening is seen within the duodenum compatible with the adjacent pancreatitis. Kidneys show symmetric contrast enhancement. No hydronephrosis or mass is seen. Aorta shows no aneurysm. No retroperitoneal adenopathy or mesenteric abnormalities are seen. No pelvic mass or adenopathy is seen. Appendix not visualized with certainty. Impression: 1. Worsening findings of pancreatitis as noted above. 2. Fatty infiltration within the liver again noted. 3. Mildly dilated gallbladder with no calcified gallstones. Diagnostic code #3 This report was dictated in [facility]
[2020-04-22 19:51] VITALS: BP 152/83; PULSE 92
--- NOTE | 2020-04-22 20:08 | PCM.DCSUM1 ---
Discharge Summary - Hospital Course HPI Initial Comments: 44-year-old male with history of type 2 diabetes diagnosed in 2014 presents to the emergency department with severe abdominal pain that started this morning. Patient complains of nausea but no vomiting. Blood sugars this morning were 270 and they are normally 150-200. He did not have any alcohol intake over the weekend. The pain is constant and mostly in the epigastrium. He denies any change in bowel habits. Denies any diarrhea, constipation. He is on insulin for his diabetes. In the emergency department his blood sugar was 323 at bedside. With stable vital signs except a slightly elevated respiratory rate of 22. White count 17.78, hemoglobin 16.7, platelets 277. INR 0.93, sodium 136 , potassium 4.4, chloride 102, bicarb 24, BUN 29, creatinine 1.3. Hemoglobin A1c is 8.3. Troponin was less than 0.017. Normal liver enzymes. Albumin 3.1. Lactic acid 1.9. Lipase 1873. CT of the abdomen showed inflammatory change around the pancreas which is felt compatible with pancreatitis. Fatty infiltration within the liver. Patient was started on fluid bolus and given Dilaudid, fentanyl, and morphine for pain management. He was then transferred to the floor with diagnosis of acute pancreatitis with unknown cause. Diagnosis: Stroke: No - Discharge Data Discharge Date: 04/22/20 Discharge Disposition: DC/Tfer to Acute Hospital 02 Condition: Good - Referral to Home Health Primary Care Physician: PCP Not In Area - Discharge Diagnosis/Problem(s) (1) Acute pancreatitis SNOMED Code(s): 071524798 ICD Code: K85.90 - ACUTE PANCREATITIS WITHOUT NECROSIS OR INFECTION, UNSP Status: Acute Current Visit: Yes Qualifiers: Pancreatitis type: unspecified pancreatitis type Acute pancreatitis complication: no infection or necrosis Qualified Code(s): K85.90 - Acute pancreatitis without necrosis or infection, unspecified (2) Obesity, Class II, BMI 35-39.9 SNOMED Code(s): 652768419033956 ICD Code: E66.9 - OBESITY, UNSPECIFIED Status: Acute Current Visit: Yes (3) Controlled type 2 diabetes mellitus with insulin therapy SNOMED Code(s): 47054257, 171513037 ICD Code: E11.9 - TYPE 2 DIABETES MELLITUS WITHOUT COMPLICATIONS; Z79.4 - [employer] (CURRENT) USE OF INSULIN Status: Acute Current Visit: Yes (4) Hyponatremia SNOMED Code(s): 85330970 ICD Code: E87.1 - HYPO-OSMOLALITY AND HYPONATREMIA Status: Acute Current Visit: Yes (5) Hypocalcemia SNOMED Code(s): 7994333 ICD Code: E83.51 - HYPOCALCEMIA Status: Acute Current Visit: Yes (6) Hypophosphatemia SNOMED Code(s): 1839524 ICD Code: E83.39 - OTHER DISORDERS OF PHOSPHORUS METABOLISM Status: Acute Current Visit: Yes (7) Leukocytosis SNOMED Code(s): 332233359, 642510754 ICD Code: D72.829 - ELEVATED WHITE BLOOD CELL COUNT, UNSPECIFIED Status: Acute Current Visit: Yes (8) Dyslipidemia SNOMED Code(s): 886472467 ICD Code: E78.5 - HYPERLIPIDEMIA, UNSPECIFIED Status: Acute Current Visit : Yes (9) Non-alcoholic fatty liver disease SNOMED Code(s): 561494381 ICD Code: K76.0 - FATTY (CHANGE OF) LIVER, NOT ELSEWHERE CLASSIFIED Status : Acute Current Visit: Yes - Patient Summary/Data Consults: Consultations 04/19/20 12:49 Consult to Diabetic Nurse Specialist [CONS] Routine Hospital Course: 04/20/2020-04/21/2020 - Lipase 1873 on admission - Triglycerides normal - Abdominal imaging without any obvious cause, no reported dilated CBD or gall stones - Only change in medication recently was Levemir to Tresiba - Pain control with Dilaudid 1mg q1h PRN and Toradol 30mg IV q6h - SIRS criteria for HR, RR and WBC count--> w/o signs of infection - Developed hyponatremia so started on NS 04/22/2020 - Pain control adjusted by decreasing frequency of Dilaudid - 12 doses of 1mg IV Dilaudid in past 24 hours - Discussed importance of attempting pain control taper with patient who agreed with plan - Decreased Dilaudid to every 4 hours - Later on in afternoon patient became worse - Pain graded 10/10 with generalized tenderness, unable to hear BS, rigid to palpation - Repeat labs were drawn - Worsening hypocalcemia and alkaline phosphatase - Repeat CT scan with - Worsening peripancreatic inflammation - Free pericolic fluid - Case discussed with hospitalist in [place] who accepted transfer - Discharge Plan *PRESCRIPTION DRUG MONITORING PROGRAM REVIEWED*: Not Applicable *COPY OF PRESCRIPTION DRUG MONITORING REPORT IN PATIENT [place]: Not Applicable Home Medications: Home Meds Insulin Aspart [NovoLOG] 12 units SUBCUT TIDMEALS 04/19/20 [History] Insulin Degludec [Tresiba] 20 units SUBCUT QPM 04/19/20 [History] Sildenafil Citrate 25 - 50 mg PO DAILY PRN 04/19/20 [History] Patient Handouts: Type 2 Diabetes Mellitus, Diagnosis, Adult, Acute Pancreatitis, Steps to Quit Smoking Forms: ED Department Discharge Referrals: Indy Aguliar NP [Ordering Only Provider] - - Discharge Summary/Plan Comment DC Time >30 min.: Yes (Coordinating transfer of care) - General Info Date of Service: 04/22/20 Subjective Update: Worsening pain - Patient Data Vitals - Most Recent: Last Vital Signs Temp 97.5 F 04/22/20 19:47 Pulse 92 04/22/20 19:47 Resp 18 04/22/20 19:47 BP 152/83 H 04/22/20 19:47 Pulse Ox 98 04/22/20 19:47 Weight - Most Recent: 134.399 kg I&O - Last 24 hours: Intake & Output 04/22/20 04/22/20 04/22/20 06:59 14:59 22:59 Intake Total 1690 1960 Output Total 700 950 Balance 990 1010 Lab Results - Last 24 hrs: Laboratory Results - last 24 hr 04/21/20 04/22/20 04/22/20 Range/Units 21:03 05:40 05:40 WBC 18.71 H (4.23-9.07) K/mm3 RBC 4.75 (4.63-6.08) M/mm3 Hgb 14.5 (13.7-17.5) gm/dl Hct 43.0 (40.1-51.0) % MCV 90.5 (79.0-92.2) fl MCH 30.5 (25.7-32.2) pg MCHC 33.7 (32.2-35.5) g/dl RDW Std Deviation 44.3 H (35.1-43.9) fL Plt Count 248 (163-337) K/mm3 MPV 11.4 (9.4-12.3) fl Neut % (Auto) 75.7 H (34.0-67.9) % Lymph % (Auto) 11.4 L (21.8-53.1) % [place] % (Auto) 10.2 (5.3-12.2) % Eos % (Auto) 2.1 (0.8-7.0) Baso % (Auto) 0.2 (0.1-1.2) % Neut # (Auto) 14.16 H (1.78-5.38) K/mm3 Lymph # (Auto) 2.13 (1.32-3.57) K/mm3 Randolph # (Auto) 1.90 H (0.30-0.82) K/mm3 Eos # (Auto) 0.40 (0.04-0.54) K/mm3 Baso # (Auto) 0.04 (0.01-0.08) K/mm3 Manual Slide Review Normal smear Puncture Site ABG pH (7.35-7.45) ABG pCO2 (35.0-45.0) mmHg ABG pO2 (80.0-100.0) mmHg ABG HCO3 (22.0-26.0) meq/L ABG O2 Saturation (96.0-97.0) % ABG Base Excess (-2-2.0) Brennan Test A-a Gradient O2 Delivery Device Oxygen Flow Rate FiO2 (21.00-100.00) % Sodium 135 L (136-145) mEq/L Potassium 3.6 (3.5-5.1) mEq/L Chloride 102 (98-107) mEq/L Carbon Dioxide 22 (21-32) mEq/L Anion Gap 14.6 (5-15) BUN 15 (7-18) mg/dL Creatinine 1.0 (0.7-1.3) mg/dL Est Cr Clr Drug Dosing 110.74 mL/min Estimated GFR (MDRD) > 60 (>60) mL/min BUN/Creatinine Ratio 15.0 (14-18) Glucose 154 H (74-106) mg/dL POC Glucose 149 H (70-105) mg/dL Lactic Acid (0.4-2.0) mmol/L Calcium 7.7 L (8.5-10.1) mg/dL Phosphorus 1.9 L (2.6-4.7) mg/dL Magnesium 2.0 (1.8-2.4) mg/dl Total Bilirubin 1.7 H (0.2-1.0) mg/dL Direct Bilirubin (0.0-0.2) mg/dl GGT (15-85) U/L AST 32 (15-37) U/L ALT 35 (16-63) U/L Alkaline Phosphatase 117 H (46-116) U/L Total Protein 6.9 (6.4-8.2) g/dl Albumin 2.4 L (3.4-5.0) g/dl Globulin 4.5 gm/dL Albumin/Globulin Ratio 0.5 L (1-2) Lipase (73-393) U/L 04/22/20 04/22/20 04/22/20 Range/Units 05:40 06:16 11:29 WBC (4.23-9.07) K/mm3 RBC (4.63-6.08) M/mm3 Hgb (13.7-17.5) gm/dl Hct (40.1-51.0) % MCV (79.0-92.2) fl MCH (25.7-32.2) pg MCHC (32.2-35.5) g/dl RDW Std Deviation (35.1-43.9) fL Plt Count (163-337) K/mm3 MPV (9.4-12.3) fl Neut % (Auto) (34.0-67.9) % Lymph % (Auto) (21.8-53.1) % Randolph % (Auto) (5.3-12.2) % Eos % (Auto) (0.8-7.0) Baso % (Auto) (0.1-1.2) % Neut # (Auto) (1.78-5.38) K/mm3 Lymph # (Auto) (1.32-3.57) K/mm3 Randolph # (Auto) (0.30-0.82) K/mm3 Eos # (Auto) (0.04-0.54) K/mm3 Baso # (Auto) (0.01-0.08) K/mm3 Manual Slide Review Puncture Site ABG pH (7.35-7.45) ABG pCO2 (35.0-45.0) mmHg ABG pO2 (80.0-100.0) mmHg ABG HCO3 (22.0-26.0) meq/L ABG O2 Saturation (96.0-97.0) % ABG Base Excess (-2-2.0) Brennan Test A-a Gradient O2 Delivery Device Oxygen Flow Rate FiO2 (21.00-100.00) % Sodium (136-145) mEq/L Potassium (3.5-5.1) mEq/L Chloride (98-107) mEq/L Carbon Dioxide (21-32) mEq/L Anion Gap (5-15) BUN (7-18) mg/dL Creatinine (0.7-1.3) mg/dL Est Cr Clr Drug Dosing mL/min Estimated GFR (MDRD) (>60) mL/min BUN/Creatinine Ratio (14-18) Glucose (74-106) mg/dL POC Glucose 156 H 147 H (70-105) mg/dL Lactic Acid (0.4-2.0) mmol/L Calcium (8.5-10.1) mg/dL Phosphorus (2.6-4.7) mg/dL Magnesium (1.8-2.4) mg/dl Total Bilirubin (0.2-1.0) mg/dL Direct Bilirubin (0.0-0.2) mg/dl GGT 90 H (15-85) U/L AST (15-37) U/L ALT (16-63) U/L Alkaline Phosphatase (46-116) U/L Total Protein (6.4-8.2) g/dl Albumin (3.4-5.0) g/dl Globulin gm/dL Albumin/Globulin Ratio (1-2) Lipase (73-393) U/L 04/22/20 04/22/20 04/22/20 Range/Units 16:02 17:25 17:25 WBC (4.23-9.07) K/mm3 RBC (4.63-6.08) M/mm3 Hgb (13.7-17.5) gm/dl Hct (40.1-51.0) % MCV (79.0-92.2) fl MCH (25.7-32.2) pg MCHC (32.2-35.5) g/dl RDW Std Deviation (35.1-43.9) fL Plt Count (163-337) K/mm3 MPV (9.4-12.3) fl Neut % (Auto) (34.0-67.9) % Lymph % (Auto) (21.8-53.1) % Randolph % (Auto) (5.3-12.2) % Eos % (Auto) (0.8-7.0) Baso % (Auto) (0.1-1.2) % Neut # (Auto) (1.78-5.38) K/mm3 Lymph # (Auto) (1.32-3.57) K/mm3 Randolph # (Auto) (0.30-0.82) K/mm3 Eos # (Auto) (0.04-0.54) K/mm3 Baso # (Auto) (0.01-0.08) K/mm3 Manual Slide Review Puncture Site ABG pH (7.35-7.45) ABG pCO2 (35.0-45.0) mmHg ABG pO2 (80.0-100.0) mmHg ABG HCO3 (22.0-26.0) meq/L ABG O2 Saturation (96.0-97.0) % ABG Base Excess (-2-2.0) Brennan Test A-a Gradient O2 Delivery Device Oxygen Flow Rate FiO2 (21.00-100.00) % Sodium 137 (136-145) mEq/L Potassium 3.9 (3.5-5.1) mEq/L Chloride 103 (98-107) mEq/L Carbon Dioxide 22 (21-32) mEq/L Anion Gap 15.9 H (5-15) BUN 15 (7-18) mg/dL Creatinine 1.1 (0.7-1.3) mg/dL Est Cr Clr Drug Dosing 100.67 mL/min Estimated GFR (MDRD) > 60 (>60) mL/min BUN/Creatinine Ratio 13.6 L (14-18) Glucose 138 H (74-106) mg/dL POC Glucose 149 H (70-105) mg/dL Lactic Acid 0.7 (0.4-2.0) mmol/L Calcium 7.6 L (8.5-10.1) mg/dL Phosphorus (2.6-4.7) mg/dL Magnesium (1.8-2.4) mg/dl Total Bilirubin 1.1 H (0.2-1.0) mg/dL Direct Bilirubin 0.30 H (0.0-0.2) mg/dl GGT 82 (15-85) U/L AST 23 (15-37) U/L ALT 18 (16-63) U/L Alkaline Phosphatase 118 H (46-116) U/L Total Protein 6.7 (6.4-8.2) g/dl Albumin 2.2 L (3.4-5.0) g/dl Globulin 4.5 gm/dL Albumin/Globulin Ratio 0.5 L (1-2) Lipase 141 (73-393) U/L 04/22/20 04/22/20 Range/Units 17:25 17:30 WBC 14.84 H (4.23-9.07) K/mm3 RBC 4.46 L (4.63-6.08) M/mm3 Hgb 13.4 L (13.7-17.5) gm/dl Hct 40.7 (40.1-51.0) % MCV 91.3 (79.0-92.2) fl MCH 30.0 (25.7-32.2) pg MCHC 32.9 (32.2-35.5) g/dl RDW Std Deviation 44.1 H (35.1-43.9) fL Plt Count 251 (163-337) K/mm3 MPV 11.3 (9.4-12.3) fl Neut % (Auto) 77.3 H (34.0-67.9) % Lymph % (Auto) 11.1 L (21.8-53.1) % Randolph % (Auto) 9.2 (5.3-12.2) % Eos % (Auto) 1.9 (0.8-7.0) Baso % (Auto) 0.2 (0.1-1.2) % Neut # (Auto) 11.49 H (1.78-5.38) K/mm3 Lymph # (Auto) 1.64 (1.32-3.57) K/mm3 Randolph # (Auto) 1.36 H (0.30-0.82) K/mm3 Eos # (Auto) 0.28 (0.04-0.54) K/mm3 Baso # (Auto) 0.03 (0.01-0.08) K/mm3 Manual Slide Review Normal smear Puncture Site Lt radial ABG pH 7.41 (7.35-7.45) ABG pCO2 32.9 L (35.0-45.0) mmHg ABG pO2 71.0 L (80.0-100.0) mmHg ABG HCO3 20.5 L (22.0-26.0) meq/L ABG O2 Saturation 92.5 L (96.0-97.0) % ABG Base Excess -2.9 L (-2-2.0) Brennan Test Positive A-a Gradient Not Reportable O2 Delivery Device Room air Oxygen Flow Rate 0.0 FiO2 21.00 (21.00-100.00) % Sodium (136-145) mEq/L Potassium (3.5-5.1) mEq/L Chloride (98-107) mEq/L Carbon Dioxide (21-32) mEq/L Anion Gap (5-15) BUN (7-18) mg/dL Creatinine (0.7-1.3) mg/dL Est Cr Clr Drug Dosing mL/min Estimated GFR (MDRD) (>60) mL/min BUN/Creatinine Ratio (14-18) Glucose (74-106) mg/dL POC Glucose (70-105) mg/dL Lactic Acid (0.4-2.0) mmol/L Calcium (8.5-10.1) mg/dL Phosphorus (2.6-4.7) mg/dL Magnesium (1.8-2.4) mg/dl Total Bilirubin (0.2-1.0) mg/dL Direct Bilirubin (0.0-0.2) mg/dl GGT (15-85) U/L AST (15-37) U/L ALT (16-63) U/L Alkaline Phosphatase (46-116) U/L Total Protein (6.4-8.2) g/dl Albumin (3.4-5.0) g/dl Globulin gm/dL Albumin/Globulin Ratio (1-2) Lipase (73-393) U/L - Exam General: Reports: Alert, Oriented, Moderate Distress, Severe Distress HEENT: Reports: Pupils Equal, Pupils Reactive, Mucous Membr. Moist/[place] Neck: Reports: Supple Lungs: Reports: Decreased Breath Sounds, Crackles. Denies: Rales, Rhonchi, Rub , Stridor, Wheezing Cardiovascular: Reports: Regular Rhythm, Tachycardia. Denies: Murmurs, Gallops , Rubs GI/Abdominal Exam: Distended, Guarding, Rigid, Tender (throughout). No: Normal Bowel Sounds (none heard), Rebound Skin: Reports: Warm, Cool Neurological: Reports: No New Focal Deficit
== END 2020-04-22 20:37 | DRG 439 ==
LOC: JD.ED 06:43 → JD.MS 10:43
PROVIDERS: ADMIT Family Medicine; ATTEND Family Medicine
DX: K85.90 Acute pancreatitis without necrosis or infection, unspecified (principal); E87.1 Hypo-osmolality and hyponatremia; E66.9 Obesity, unspecified; E11.9 Type 2 diabetes mellitus without complications; E83.51 Hypocalcemia; E78.5 Hyperlipidemia, unspecified; K76.0 Fatty (change of) liver, not elsewhere classified; D72.829 Elevated white blood cell count, unspecified; F17.200 Nicotine dependence, unspecified, uncomplicated; E83.39 Other disorders of phosphorus metabolism; Z88.0 Allergy status to penicillin; Z79.4 Long term (current) use of insulin
CPT/HCPCS: 36415; 36600; 74018; 74018-26; 74177; 74177-26; 76705; 76705-26; 80048; 80053; 80306; 80307; 81001; 82248; 82465; 82803; 82962; 82977; 83036; 83605; 83690; 83718; 83721; 83735; 84100; 84478; 84484; 85025; 85610; 85730; 86140; 87070; 87641; 93005; 96361; 96374; 96375; 96376; 99285-25; J1170; J1650; J1815-GY; J1885; J2270; J2405; J2765; J3010; J3475; J3490; J7030; J7040; J7120; Q9963; Q9967

== ENCOUNTER 2022-05-07 17:10 | Emergency (ER) | payer SELFPAY ==
[2022-05-07] MEDS ORDERED: Ketorolac 30 MG/ML SDV IVPUSH ONE (18:21)
[2022-05-07] MEDS ORDERED: Sodium Chloride 0.9% 1,000 ML IV STA (18:21)
[2022-05-07 18:43] LABS: ESTIMATED GFR 76 mL/min (>60)
[2022-05-07 18:56] LABS: CORONAVIRUS COVID-19 NAA POSITIVE (NEGATIVE)
[2022-05-07] MEDS ORDERED: methylPREDNISolone Sodium Succinate 125 MG/2 ML SDV IVPUSH PRN (19:58)
[2022-05-07] MEDS ORDERED: EPINEPHrine 1 MG/ML SDV IM PRN (19:58)
[2022-05-07] MEDS ORDERED: diphenhydrAMINE 50 MG/ML SDV IVPUSH PRN (19:58)
[2022-05-07] MEDS ORDERED: Famotidine 20 MG/2 ML SDV IVPUSH PRN (19:58)
[2022-05-07] MEDS ORDERED: Insulin Regular, Human 100 Units/ML 3 ML Vial SUBCUT ONE ×2 (19:59→21:52)
[2022-05-07] MEDS ORDERED: Sodium Chloride 0.9% 10 ML Syringe FLUSH SCH (20:00)
== END 2022-05-07 22:15 | disposition home or self-care (01) ==
LOC: JD.ED 17:10
DX: U07.1 COVID-19 (principal); E11.65 Type 2 diabetes mellitus with hyperglycemia; F17.210 Nicotine dependence, cigarettes, uncomplicated; Z88.0 Allergy status to penicillin; Z88.8 Allergy status to other drugs, medicaments and biological substances; Z79.4 Long term (current) use of insulin
CPT/HCPCS: 0240U; 36415; 80053; 82947; 85025; 86140; 96361; 96372; 96374; 96375; 99284; J0171; J1200; J1815; J1885; J2930; J3490; J7030; M0222; Q0222

== ENCOUNTER 2023-08-04 06:28 | Emergency (ER) | payer OTHER ==
[2023-08-04] MEDS ORDERED: Ondansetron 4 MG/2 ML SDV IVPUSH ONE (06:41)
[2023-08-04] MEDS ORDERED: HYDROmorphone 1 MG/ML Syringe IM ONE (06:41)
[2023-08-04 06:46] LABS: BASOPHILS ABSOLUTE AUTO 0.1 K/mm3 (0.0-0.2); BASOPHILS PERCENT AUTO 0.5 % (0.0-1.0); EOSINOPHILS ABSOLUTE AUTO 0.1 K/mm3 (0.0-0.4); EOSINOPHILS PERCENT AUTO 0.4 % (0.0-6.0); HEMATOCRIT 46.1 % (42.0-52.0); HEMOGLOBIN 15.7 gm/dl (14.0-18.0); IMMATURE GRAN ABSOLUTE AUTO 0.09 K/mm3 (0.00-0.05); IMMATURE GRAN PERCENT AUTO 0.4 % (0.0-0.4); LYMPHOCYTES ABSOLUTE AUTO 1.9 K/mm3 (1.0-4.8); LYMPHOCYTES PERCENT AUTO 8.6 % (24.0-44.0); MEAN CORPUSCULAR HEMOGLOBIN 31.2 pg (28.0-32.0); MEAN CORPUSCULAR HGB CONC 34.1 g/dl (32.0-36.0); MEAN CORPUSCULAR VOLUME 91.5 fl (83.0-99.0); MEAN PLATELET VOLUME 11.5 fl (9.4-12.4); MONOCYTES ABSOLUTE AUTO 1.8 K/mm3 (0.0-0.8); MONOCYTES PERCENT AUTO 8.2 % (0.0-8.0); NEUTROPHILS ABSOLUTE AUTO 17.8 K/mm3 (1.8-7.7); NEUTROPHILS PERCENT AUTO 81.9 % (41.0-71.0); PLATELET COUNT,PLT 283 K/mm3 (150-400); RED BLOOD CELL COUNT 5.04 M/mm3 (4.52-5.90); WHITE BLOOD CELL COUNT,WBC 21.71 K/mm3 (3.9-11.3)
[2023-08-04 07:04] LABS: A/G RATIO 0.8 (1-2); ALBUMIN 3.6 g/dl (3.4-5.0); ANION GAP 16.2 (5-15); BILIRUBIN TOTAL 0.9 mg/dL (0.2-1.0); CALCIUM 9.4 mg/dL (8.5-10.1); EST CRCL DRUG DOSING (CG) 56.66 mL/min; POTASSIUM,K 4.2 mEq/L (3.5-5.1); PROTEIN TOTAL,TP 7.9 g/dl (6.4-8.2)
[2023-08-04 07:09] LABS: SLIDE REVIEW ABNORMAL SMEAR
[2023-08-04] MEDS ORDERED: Iopamidol 612 MG/ML 100 ML Bottle IVPUSH ONE (07:44)
[2023-08-04 07:47] LABS: APPEARANCE,URINE CLEAR (Clear); BILIRUBIN,URINE NEGATIVE (Negative); COLOR,URINE YELLOW (Yellow); GLUCOSE,URINE 2+ (Negative); KETONES,URINE 1+ (Negative); LEUKOCYTE ESTERASE,URINE NEGATIVE (Negative); NITRITE,URINE NEGATIVE (Negative); OCCULT BLOOD,URINE 1+ (Negative); PH,URINE 5.5 (5.0-8.0); PROTEIN,URINE 3+ (Negative); UROBILINOGEN,URINE 0.2 (0.2-1.0)
[2023-08-04 07:58] LABS: BACTERIA,URINE FEW /hpf (FEW); EPITHELIAL CELLS,URINE 0-5 /hpf (0-5); HYALINE CASTS,URINE 0-5 /lpf (0-5); MUCUS,URINE FEW /hpf (FEW); RBC,URINE 0-5 /hpf (0-5); WBC,URINE 0-5 /hpf (0-5)
[2023-08-04] MEDS ORDERED: Metoclopramide 10 MG/2 ML SDV IVPUSH ONE (08:04)
[2023-08-04] MEDS ORDERED: HYDROmorphone 1 MG/ML Syringe IVPUSH ONE (08:04)
[2023-08-04] MEDS ORDERED: Insulin Regular, Human 100 Units/ML 3 ML Vial SUBCUT ONE (08:27)
[2023-08-04 09:34] LABS: HEMOGLOBIN A1C 13.4 %
[2023-08-04] MEDS ORDERED: Insulin Regular, Human 100 Units/ML 3 ML Vial SUBCUT SCH ×2 (10:56→13:00)
== END 2023-08-04 11:04 | disposition home or self-care (01) ==
LOC: JD.ED 06:28
DX: S43.102A Unspecified dislocation of left acromioclavicular joint, initial encounter (principal); S00.03XA Contusion of scalp, initial encounter; S70.11XA Contusion of right thigh, initial encounter; E11.65 Type 2 diabetes mellitus with hyperglycemia; E11.22 Type 2 diabetes mellitus with diabetic chronic kidney disease; N18.30 Chronic kidney disease, stage 3 unspecified; E86.9 Volume depletion, unspecified; Z79.4 Long term (current) use of insulin; Z88.1 Allergy status to other antibiotic agents; Z88.8 Allergy status to other drugs, medicaments and biological substances; V69.9XXA Occupant (driver) (passenger) of heavy transport vehicle injured in unspecified traffic accident, initial encounter; Y92.410 Unspecified street and highway as the place of occurrence of the external cause
CPT/HCPCS: 36415; 70450; 70486; 71260; 72125; 72128; 73030; 74177; 80053; 81001; 82947; 83036; 85025; 86850; 86900; 86901; 96372; 96374; 96375; 99284; J1170; J1815; J2405; J2765; Q9967